=== PATIENT | female | born 1955 | race Caucasian/White ===

== ENCOUNTER → 2021-09-27 10:40 | Outpatient (BNVA) | payer MEDICARE, SELFPAY | PROVIDERS: Family Provider Family Medicine; PCP Family Medicine; Visit Provider Registered Nurse Neonatal Intensive Care | DX: M19.012 Primary osteoarthritis, left shoulder (principal); S49.92XA Unspecified injury of left shoulder and upper arm, initial encounter; W19.XXXA Unspecified fall, initial encounter | CPT/HCPCS: 73030 ==

== ENCOUNTER 2023-05-22 12:25 | Day surgery (SDC) | payer MEDICARE, SELFPAY ==
[2023-05-22] VITALS (9 sets, daily range): BP systolic 95–140; BP diastolic 64–81; PULSE 51–75; RESP 12–16; TEMP 36.1–36.4; O2SAT 96–99
[2023-05-22 13:04] LABS: Basophils # 0.1 10^3/uL (0.0-0.1); Basophils % 0.8 %; Eosinophils # 0.2 10^3/uL (0.0-0.8); Eosinophils % 2.3 %; Hematocrit 43.6 % (37.0-47.0); Hemoglobin 14.4 g/dL (11.5-15.3); Lymphocytes # 1.7 10^3/uL (0.8-4.8); Lymphocytes % 26.4 %; Mean Corpuscular Hemoglobin 29.6 pg (28.0-34.0); Mean Corpuscular Volume 89.7 fl (81-99); Monocytes # 0.5 10^3/uL (0.2-0.9); Neutrophils # 4.06 10^3/uL (1.8-7.7); Neutrophils % 62.3 %; Nucleated Red Blood Cells % 0 %; Platelet Count 247 10^3/cmm (130-400); Red Blood Count 4.86 10^6/uL (4.1-5.3); Red Cell Distribution Width 12.4 % (12.1-15.1); White Blood Count 6.5 10^3/uL (4.0-10.0)
--- NOTE | 2023-05-22 13:36 | ANES.PREANE2 ---
Pre-Anesthetic Assessment Height/Weight: Height 1.55 m Weight 76.204 kg Preop Diagnosis: cervical/vaginal mass Operation Date: 05/22/23 13:50 Proposed Procedures p Pelvic Exam [id number], N89.8, N88.8(Not Applicable) - Anne Kwon MD s bx vagina & cervix [id number](Not Applicable) - Anne Kwon MD Familial anesthetic complications: none Was Beta Tucker taken within 24 hours: N/A Was Clonidine taken within 24 hours: N/A Last intake: Intake Last Liquid Date 05/22/23 Last Solid Date 05/21/23 Last Solid Time 20:30 Social No alcohol and No tobacco Exam alert, oriented x 3, clear to auscultation bilaterally and regular rate & rhythm Airway Mallampati: Class I Dentition: full Anesthetic Plan ASA status: 1 Anesthesia: General Risk of > 500 ml blood loss (7ml/kg in children): No Medications/Allergies Home Medications Medication Instructions Recorded Confirmed Last Taken Type blue-green algae (bulk) (Spirulina ea miscellaneous 05/21/23 05/21/23 History powder) Allergies Allergy/AdvReac Type Severity Reaction Status Date / Time No Known Allergies Allergy Verified 05/22/23 12:48 [facility] Anesthesia Family History (Updated 05/21/23 @ 12:58 by Karissa Calderon LPN) Grandmother Heart disease maternal Mother Hypertension Stroke Diabetes Denies family history of Colon cancer Ovarian cancer Hypercholesteremia Breast cancer Uterine cancer Thyroid disease Data Anesthesia 05/22/23 12:55 05/22/23 12:55 Short CBC 05/22/23 Range/Units 12:55 WBC 6.5 (4.0-10.0) 10^3/uL Hgb 14.4 (11.5-15.3) g/dL Hct 43.6 (37.0-47.0) % MCV 89.7 (81-99) fl Plt Count 247 (130-400) 10^3/cmm Neut % (Auto) 62.3 % Neut # (Auto) 4.06 (1.8-7.7) 10^3/uL BMP 05/22/23 12:55 Sodium Cancelled Potassium Cancelled Chloride Cancelled Carbon Dioxide Cancelled BUN Cancelled Creatinine Cancelled Glucose Cancelled Calcium Cancelled Cardiac Studies: No Data to Display
[2023-05-22] MEDS: sodium chloride 0.9% 1,000 ML 30 ML IV (13:45)
[2023-05-22 14:03] LABS: Anion Gap 14.9 (5-19); Blood Urea Nitrogen 6 mg/dL (8-23); Calcium 9.2 mg/dL (8.5-10.5); Carbon Dioxide 25 mmol/L (22-29); Chloride 107 mmol/L (98-107); Glomerular Filtration Rate 99.1 mL/min (90-130); Glucose 102 mg/dL (65-115); Osmolality Calculated 294 mOsm/kg (285-295); Potassium 3.9 mmol/L (3.5-5.1); Sodium 143 mmol/L (136-145)
--- NOTE | 2023-05-22 14:04 | W.PM.OPSUD ---
Surgery/Procedure H&P Update DATE OF PROCEDURE: May 22, 2023 DATE H&P PERFORMED: 05/21/23 H&P UPDATE INFORMATION: I have reviewed H&P completed within last 30 days, I have examined patient prior to procedure and No changes to prior documentation PREOP DIAGNOSIS: cervical/vaginal mass PLANNED PROCEDURE: Operation Date: 05/22/23 13:50 Proposed Procedures p Pelvic Exam 90898, N89.8, N88.8(Not Applicable) - Anne Kwon MD s bx vagina & cervix [id number](Not Applicable) - Anne Kwon MD Related Problem List Diagnoses (1) Cervical mass: (2) Vaginal mass:
[2023-05-22] MEDS: ceFAZolin 2,000 MG in sodium chloride 0.9% (plus) 50 ML 100 MG IV (15:08)
--- NOTE | 2023-05-22 16:28 | ANE.PACU2 ---
Inpatient post-anesthesia follow up: Airway intact: Yes Vital signs: Temperature 97.4 F Pulse Rate 53 Respiratory Rate 16 Blood Pressure 139/70 Pulse Oximetry 98 Oxygen Delivery Me thod Room Air Oxygen Flow Rate 8 Fraction of Inspir ed Oxygen Hydration adequate: Yes Nausea and vomiting: No Pain level: 1 Mental status: Baseline
--- NOTE | 2023-05-22 16:52 | P.OP_ITS ---
Operative Report Date of procedure: May 22, 2023 Pre-op diagnosis: Preop Diagnosis cervical/vaginal mass Post-op diagnosis: same Post-op findings: Large irregular cervical mass. Large endocervical polyp present as well. Procedure done: biopsy of cervical mass Specimens removed/disposition: portion of cervical mass to pathology Surgeon: Anne Kwon Anesthesia: MAC Estimated blood loss (mL): 25 IV fluids (mL): 200 Complications: none Findings: large, irregular cervical mass and additional endocervical polyp Condition: stable Disposition: PACU Procedure: The patient was taken to the operating room where monitored anesthesia was administered and found to be adequate. She was prepped and draped in the normal sterile fashion in the dorsal lithotomy position in [facility]. A Devyn- coated bivalve speculum was placed into the vagina and the large mass visualized. There was also a endocervical polyp present on the right side. The mass was grasped with a [place] forcep and using a loop cautery, a portion of the mass was removed. The mass was extremely friable and several pieces came out at this time. The bleeding was controlled using ball cautery. The speculum was removed and attention was turned to the cystoscopy. The cystoscope was advanced into the urinary bladder it appeared grossly normal there were no masses and no invasion by the cancer. A picture was taken to show the patient that her bladder appeared grossly normal. All instruments were removed. The patient tolerated the procedure well. There was good hemostasis of the cervical mass at the end of the procedure. Sponge lap and needle counts were correct x3. She was taken to the recovery room in stable condition.
--- NOTE | 2023-05-22 16:52 | P.DS_ITS ---
Discharge Providers Date of Admission: 05/22/23 Date of Discharge: May 22, 2023 Attending Provider at Discharge: Anne Kwon MD Primary Care Provider: Saundra Lazo MD Diagnoses at Discharge Discharge Diagnosis (1) Cervical mass: Status: Acute (2) Vaginal mass: Status: Acute Reason for Visit Reason for Visit: N98.8, N88.8 Hospital Course Hospital Course The patient was admitted for exam under anesthesia and biopsy of a cervical/vaginal mass. She did well post-procedure and was ready for discharge. Discharge Data Studies Completed and Pending Pending at discharge Category Date Time Status Pathology: Surgical [PTH] Routine Pth 05/22/23 15:45 Received Laboratory Results WBC 6.5 10^3/uL (4.0-10.0) 05/22/23 12:55 RBC 4.86 10^6/uL (4.1-5.3) 05/22/23 12:55 Hgb 14.4 g/dL (11.5-15.3) 05/22/23 12:55 Hct 43.6 % (37.0-47.0) 05/22/23 12:55 MCV 89.7 fl (81-99) 05/22/23 12:55 MCH 29.6 pg (28.0-34.0) 05/22/23 12:55 MCHC 33.0 g/dL (30.0-36.0) 05/22/23 12:55 RDW 12.4 % (12.1-15.1) 05/22/23 12:55 Plt Count 247 10^3/cmm (130-400) 05/22/23 12:55 MPV 11.0 fL (7.4-10.4) H 05/22/23 12:55 Neut % (Auto) 62.3 % 05/22/23 12:55 Lymph % (Auto) 26.4 % 05/22/23 12:55 Alcorn % (Auto) 8.0 % 05/22/23 12:55 Eos % (Auto) 2.3 % 05/22/23 12:55 Baso % (Auto) 0.8 % 05/22/23 12:55 Neut # (Auto) 4.06 10^3/uL (1.8-7.7) 05/22/23 12:55 Lymph # (Auto) 1.7 10^3/uL (0.8-4.8) 05/22/23 12:55 Alcorn # (Auto) 0.5 10^3/uL (0.2-0.9) 05/22/23 12:55 Eos # (Auto) 0.2 10^3/uL (0.0-0.8) 05/22/23 12:55 Baso # (Auto) 0.1 10^3/uL (0.0-0.1) 05/22/23 12:55 Nucleated RBC % (auto) 0 % 05/22/23 12:55 Nucleated RBCs # 0.0 /100WBC 05/22/23 12:55 Sodium 143 mmol/L (136-145) 05/22/23 13:15 Potassium 3.9 mmol/L (3.5-5.1) 05/22/23 13:15 Chloride 107 mmol/L (98-107) 05/22/23 13:15 Carbon Dioxide 25 mmol/L (22-29) 05/22/23 13:15 Anion Gap 14.9 (5-19) 05/22/23 13:15 BUN 6 mg/dL (8-23) L 05/22/23 13:15 Creatinine 0.6 mg/dL (0.5-0.9) 05/22/23 13:15 GFR Calculation 99.1 mL/min (90-130) 05/22/23 13:15 Glucose 102 mg/dL (65-115) 05/22/23 13:15 Calculated Osmolality 294 mOsm/kg (285-295) 05/22/23 13:15 Calcium 9.2 mg/dL (8.5-10.5) 05/22/23 13:15 Vitals Last Vital Signs Temp 97.4 F L 05/22/23 16:05 Pulse 72 05/22/23 16:44 Resp 16 05/22/23 16:44 BP 140/81 05/22/23 16:44 Pulse Ox 97 05/22/23 16:44 O2 Del Method Room Air 05/22/23 16:44 O2 Flow Rate 8 05/22/23 15:42 Discharge Plan Discharge Patient Disposition: Home Condition: Stable Prescriptions: Continued Spirulina Powder MISCELLANEOUS Discharge Orders: Discharge Order (Routine); Ordered 05/22/23 Ordered By: Anne Kwon Patient Instructions: Cystoscopy (DC), Post Anesthesia Care Discharge Attestations Time Spent in Discharge Care*: less than 30 min Quality Metrics Clinical Quality Measures [ No reported AMI, CVA or VTE this stay] Coding Level of Care Code Acute Code for Chg Fwd Diagnoses Cervical mass N88.8 Vaginal mass N89.8
== END 2023-05-22 17:20 | disposition home or self-care (01) ==
PROVIDERS: PCP Family Medicine; Visit Provider Obstetrics & Gynecology
PROC: 8E0UXY7 Examination of Female Reproductive System (ICD-10-PCS; CPT 57410; principal; 2023-05-22 13:40)
PROC: (CPT 57500; 2023-05-22 13:40)
PROC: 0TJB8ZZ Inspection of Bladder, Via Natural or Artificial Opening Endoscopic (ICD-10-PCS; CPT 52000; 2023-05-22 13:40)
DX: C53.9 Malignant neoplasm of cervix uteri, unspecified (principal); N84.1 Polyp of cervix uteri
CPT/HCPCS: 57500; 36415; 80048; 85025; 88305; 88342; J0690; J1885; J2704; J3010; J7030

== ENCOUNTER 2023-06-23 05:41 | Outpatient (CLI) | payer MEDICARE, SELFPAY ==
--- NOTE | 2023-06-23 | PETR_ITS ---
PROCEDURE INFORMATION: Exam: PET/CT Skull Base to Mid-thigh Exam date and time: 06/23/2023 11:56 AM Age: 67 years old Clinical indication: Condition or disease; Primary cancer: Cervical; Initial oncological staging assessment; Additional info: Cervical cancer LABS AND CLINICAL REPORTS: Glucose: 97 mg/dl Treatment strategy for malignancy (PET staging): Initial Staging (PI) TECHNIQUE: Imaging protocol: Following at least four-hour fasting and following the injection of radiopharmaceutical, low dose CT images were obtained. Then, PET images were obtained. Attenuation corrected images were constructed using the CT scan. Fused images of PET and CT were reviewed. The standardized uptake values (SUV) reported below are maximum values within a region of interest, expressed in gm/ml. Exam includes orbital meatal line to mid-thigh. Radiopharmaceutical: 13.04 mCi F-18 FDG (Fluorodeoxyglucose), IV. Time of imaging post radiopharmaceutical administration: 1 hour Injection site: Right antecubital COMPARISON: No relevant prior studies available. FINDINGS: Brain: Visualized brain has normal physiologic uptake. Pharynx: No abnormal uptake. Larynx: No abnormal uptake. Thyroid: Diffusely elevated uptake in the thyroid gland is noted, SUV max 4.7 with possible low-density nodularity particularly in the right inferior thyroid lobe. Lungs, pleura and trachea: No abnormal uptake. A calcified appearing right upper lobe nodule is not radiotracer avid on series 3, image 54 measuring approximately 0.5 x 0.3 cm. Heart: Normal physiologic uptake. Mediastinal space: No abnormal uptake. Diaphragm: Moderate to large hiatal hernia. Liver: No abnormal uptake. Gallbladder and bile ducts: No abnormal uptake. Pancreas: No abnormal uptake. Spleen: No abnormal uptake. Adrenal glands: No abnormal uptake. Kidneys and ureters: Normal physiologic uptake. Stomach and bowel: Mildly elevated uptake in the sigmoid colon is noted on series 4, image 124, SUV max 3.8, with possible mild associated wall thickening on CT series 3, images 123-125. Reproductive: Abnormal uptake is within a region of masslike soft tissue density centered in the region of the cervix is noted measuring 6.7 x 4.3 cm in the axial plane on series 3, image 133, SUV max 57.6. Vasculature: No abnormal uptake. There are diffuse atherosclerotic changes. Lymph nodes: No abnormal uptake. No lymphadenopathy in the head, neck, chest, abdomen, pelvis, and extremities. Bones/joints: No abnormal uptake in the visualized axial and appendicular skeleton. There is mild diffuse vertebral body spondylosis. Mild thoracic spine kyphosis. Soft tissues: Benign-appearing uptake is noted in the region of the distal right gluteus medius tendon, likely inflammatory. METRICS: Mediastinal blood pool: SUV max 2.5 PET/PET skulltothigh INITIAL [id number] IMPRESSION: 1. Elevated uptake is identified in the region of a cervical mass compatible with the history of cervical cancer. 2. Mildly elevated uptake is noted in a segment of sigmoid colon where there is possible wall thickening. This uptake may be physiologic however inflammatory, infectious or neoplastic etiologies cannot be excluded from this exam. 3. Elevated uptake in a nodular appearing thyroid gland is diffuse favoring a benign etiology. Thyroid ultrasound may be useful for further characterization. 4. Moderate to large hiatal hernia. 5. Additional nonurgent findings as detailed above.
== END 2023-06-23 05:42 | disposition home or self-care (01) ==
PROVIDERS: PCP Family Medicine; Visit Provider Obstetrics & Gynecology Gynecologic Oncology
DX: C53.9 Malignant neoplasm of cervix uteri, unspecified (principal); K44.9 Diaphragmatic hernia without obstruction or gangrene
CPT/HCPCS: 78815; A9552

== ENCOUNTER → 2023-08-01 09:13 | Day surgery (SDC) | payer MEDICARE, SELFPAY ==
--- NOTE | 2023-08-01 09:16 | XR_ITS ---
WS: [id number] XR chest 1V portable [id number] REASON FOR EXAM: Post PICC insertion FINDINGS: Initial image demonstrated the left arm PICC line just within the superior vena cava at the junction of the innominate vein. It was suggested to advance the catheter 2 to 3 cm. A follow-up examination d emonstrated the tip of the catheter in the superior vena cava just above the right atrium in proper p osition for use. IMPRESSION: PICC line placement appropriate and ready for use. Instructions and confirmations were made over the phone to the electronic technologist on site.
--- NOTE | 2023-08-01 10:00 | PC.NURSE ---
Double lumen PICC placed. [facility] for [facility]. Pt requesting PICC to be placed in left arm due to some residual pain in right arm. Risks and benefits discussed with patient and informed consent obtained. Left arm assessed with left basilic vein measuring 4.5 mm, straight, and apparent best choice for placement. Using sterile technique and MST, basilic vein accessed x 1 stick. Mid-arm circumference measured 10 cm from left AC 30 cm. Trimmed cath length 42 cm with 0 cm external length noted. CXR shows cath tip in distal SVC, good to use per radiologist. Line secured with stat-lock. Insertion site covered with Biopatch and TSM. Report called to Ashlee JAQUEZ. Pt scheduled at [facility] tomorrow at 1:45 pm for PICC dressing change.
[2023-08-01 10:41] VITALS: BP 149/86; PULSE 66; RESP 18; TEMP 36.2; O2SAT 97
== END ==
PROVIDERS: PCP Family Medicine; Visit Provider Internal Medicine Medical Oncology
DX: Z45.2 Encounter for adjustment and management of vascular access device (principal)
CPT/HCPCS: 36573; 71045

== ENCOUNTER 2023-08-10 10:02 | Oncology outpatient (recurring) (ONCR) | payer MEDICARE, SELFPAY ==
--- NOTE | 2023-07-19 13:12 | N.ONRAD NP_ITS ---
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 Chief Complaint / History of Present Illness: Mrs. Wiggins is a 67-year-old lady who developed vaginal spotting and noticed a mass in the distal vagina. She was seen by Dr. Kwon and found to have a large irregular cervical mass associated with an endocervical polyp. The patient was taken to the operating room 05/22/2023 and biopsies were performed. The polyp had mild atypia. The cervix pathology showed adenocarcinoma. She was referred to Dr. Hendrix. Her exam revealed a large necrotic mass involving the cervix, approximately 6 cm in size, though the patient was very uncomfortable and a precise measurement was difficult to obtain. She did detect early parametrial invasion at least. A PET scan was performed. Abnormal uptake was present in the cervix and the mass was measured at approximately 6.7 x 4.3 cm. No lymphadenopathy or metastatic disease seen. There was increased uptake in a segment of the sigmoid colon, inconclusive in nature. Also some uptake was noted in the thyroid gland, benign etiology favored, though thyroid ultrasound ???may be useful . Mrs. Wiggins is a candidate for concomitant chemotherapy and radiation to the pelvis followed by brachytherapy. She is referred for the external beam portion of her treatment. She has an appointment on Sunday of next week to discuss chemotherapy. Current Medications: None listed. Allergies: No known medication allergies. Medical History: No history of collagen vascular disease. No previous radiation therapy. No major illnesses. Surgical History: Cervical biopsy 05/22/2023. D&C 1972. Family History: Brain tumor in her sister. Cancer of some type in her mother. Social History: . Current Complaints / Review of Systems: . Vaginal bleeding has largely stopped. Slight spotting. She has no troublesome urinary tract symptoms, but she states her urinary stream is deviated to 1 side because of the tumor. No bowel complaints. No pulmonary complaints. No cardiac complaints. No unusual pain. Vital Signs: Performed on 07/19/2023 10:43 AM BMI - 31.668 kg/m2 (high), Height - 61 in, Weight - 167.6 lbs, Temperature - 97.9 f, Pulse - 65 /min, Respiration - 18 /min, O2 Sat - 99 %, Pain - 0, Fatigue - 0 and BP - 143/ 87 mm(hg)(high/). Physical Exam: Alert, oriented, no acute distress. No cervical or supraclavicular lymphadenopathy. Lungs clear to percussion. On auscultation no rales, rhonchi, or wheezes. Heart rhythm regular. No murmur or gallop. Abdomen: no distention. No organomegaly or mass or tenderness. No tenderness over the bladder. Pelvic: Normal-appearing external genitalia. The patient was very reluctant to allow an exam and started pulling away before I put the speculum in the vagina. I saw almost nothing due to her lack of cooperation. However I did palpate with 1 digit. The cervix was very indurated and palpated down to about 1 cm below the inferior border of the symphysis pubis. I could not further characterize the cervical mass. No active bleeding developed. Performance Status: ECOG 0 Pathology: Adenocarcinoma Lab: Imaging: See HPI PET negative except for the primary cervical cancer. 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 Hendrix when she examined the patient. The patient did not allow me to do an adequate exam. I discussed with her that she is a candidate for external beam radiation for 5 weeks given in conjunction with weekly chemotherapy. After that she will be a candidate for brachytherapy. She told me that Dr. Romo told her that she would have two brachytherapy sessions a week for 3 weeks. I discussed the logistics of daily external beam radiation. I discussed the acute side effects including diarrhea, dysuria, fatigue, and decreased appetite. She asked about blood counts (she is a [employer]) and I told her they could drop during treatment, mostly due to the chemotherapy. I discussed the rare but real risk of injury to bowel or bladder that could require surgery and even a permanent ostomy. She wishes to proceed with treatment as recommended. Plan: Simulation performed. She will be counseled on chemotherapy next Sunday in [place]. Signed by: 07/19/2023 1:10:35 PM <<Signature on File>> Time spent with patient: CPT Code: CPT Code:
[2023-08-02 13:50] VITALS: BP 130/73; PULSE 65; RESP 16; TEMP 37.4; O2SAT 98
--- NOTE | 2023-08-02 13:53 | PC.NURSE ---
PICC Line Dressing Change PICC line dressing was changed on 08/02/23 at 1345 using sterile technique. No redness or irritation noted at the insertion site. Pt tolerated well.
[2023-08-07 08:29] VITALS: BP 119/79; PULSE 63
[2023-08-07 08:29] LABS: Basophils % 0.7 %; Eosinophils # 0.2 10^3/uL (0.0-0.8); Hematocrit 39.7 % (36-47); Lymphocytes # 1.3 10^3/uL (0.8-4.8); Lymphocytes % 24.4 %; Mean Corpuscular HGB Conc 33.5 g/dL (30-55); Mean Corpuscular Hemoglobin 30.3 pg (27-33); Mean Corpuscular Volume 90.4 fl (85-98); Mean Platelet Volume 11.1 fL (7.4-10.4); Monocytes # 0.4 10^3/uL (0.2-0.9); Monocytes % 7.5 %; Neutrophils # 3.44 10^3/uL (1.8-7.7); Neutrophils % 63.2 %; Nucleated Red Blood Cells % 0 %; Platelet Count 205 10^3/cmm (157-399); Red Blood Count 4.39 10^6/uL (3.85-5.65); Red Cell Distribution Width 12.2 % (12.1-15.1); White Blood Count 5.45 10^3/uL (3.29-11.43)
[2023-08-07 09:07] LABS: Alanine Aminotransferase 17 U/L (0-33); Albumin Level 4.1 g/dL (3.5-5.2); Alkaline Phosphatase 117 U/L (35-105); Anion Gap 14.8 (5-19); Aspartate Amino Transferase 12 U/L (0-32); Blood Urea Nitrogen 10 mg/dL (8-23); Calcium 9.1 mg/dL (8.5-10.5); Carbon Dioxide 24 mmol/L (22-29); Chloride 104 mmol/L (98-107); Free T4 Free Thyroxine 1.12 ng/dL (0.82-1.77); Globulin 2.7 g/dL (1.3-4.6); Glomerular Filtration Rate 122.3 mL/min (90-130); Glucose 95 mg/dL (65-115); Osmolality Calculated 287 mOsm/kg (285-295); Potassium 3.8 mmol/L (3.5-5.1); Sodium 139 mmol/L (136-145); Thyroid Stimulating Hormone 5.42 uIU/mL (0.27-4.20); Total Bilirubin 0.3 mg/dL (0.15-1.2); Total Protein 6.8 g/dL (6.6-8.7)
[2023-08-07] MEDS: sodium chloride 0.9% 250 ML 75 ML IV (12:17)
[2023-08-07] MEDS: palonosetron 0.25 mg/5 mL SDV IVP (12:20)
[2023-08-07] MEDS: famotidine 20 mg/2 mL INJ IVP (12:22)
[2023-08-07] MEDS: diphenhydrAMINE 50 mg/mL SDV 1mL 25 MG IVP (12:26)
[2023-08-07] MEDS: OLANZapine 5 mg TABLET PO (12:30)
[2023-08-07] MEDS: fosaprepitant 150 MG in sodium chloride 0.9% 150 ML 300 MG IV (12:30)
--- NOTE | 2023-08-07 13:26 | ONCRAD TMN_ITS ---
Radiation Oncology Weekly Treatment Management Patient: Feliciano Yeung MR#: [id number] : 1955> Attending Physician: Ferny Machuca Date of Service: 08/07/2023 Referring Physician(s) : Diagnosis: C53.9 - Malignant neoplasm of cervix uteri, unspecified, Diagnosed 05/22/2023 (Active) Radiotherapy to date: Course: Pelvis 2022, Treatment Site: Pelvis 45Gy, Ref. ID: [id number], Energy: 15X, Dose/Fx (cGy): 180, #Fx: , Dose Correction (cGy): 0, Total Dose (cGy): 180, Start Date: 08/07/2023, Elapsed Days: 0 Reason for visit: The patient is being seen today as part of their regularly scheduled weekly on treatment visits to assess for acute toxicities from radiotherapy. Review of Systems: She just began treatment. No bowel or bladder sxs. Variable vag DC. Some blood passes with more activity. Using 2 to 3 pads a day. She remains active. Vital Signs: Performed on 08/07/2023 10:43 AM BMI - 31.555 kg/m2 (high), Height - 61 in, Weight - 167 lbs, Temperature - 97.3 f, Pulse - 63 /min, Respiration - 17 /min, O2 Sat - 99 %, Pain - 0, Fatigue - 0 and BP - 119/ 79 mm(hg). Physical Exam: Imaging: Radiation therapy imaging related to accurate target localization (i.e. KV, MV and CBCT) was reviewed. Appropriate changes, if any, were made to ensure treatment accuracy. Plan: Good tolerance of treatment. Continue as planned. Signed by: Ferny Machuca 08/07/2023 1:25:48 PM
[2023-08-07] MEDS: CISPLATIN IV (13:52)
[2023-08-07] MEDS: SODIUM CHLORIDE 0.9% IV (13:52)
[2023-08-07] MEDS: FUROsemide 10 mg/mL SDV 2mL 20 MG IVP (15:04)
[2023-08-07] MEDS: potassium chloride 20 MEQ in sodium chloride 0.9% 500 ML 500 MEQ IV (15:09)
[2023-08-07 16:21] VITALS: BP 114/74; PULSE 54; RESP 17; TEMP 36.6; O2SAT 99
== END 2023-08-11 23:59 | disposition home or self-care (01) ==
PROVIDERS: PCP Family Medicine; Visit Provider Internal Medicine Medical Oncology
DX: C53.0 Malignant neoplasm of endocervix (principal)
CPT/HCPCS: 77300; 77301; 77334; 77338; 77386; 80053; 84439; 84443; 85025; 96366; 96367; 96375; 96413; 99205; 99215; J1100; J1200; J1453; J1642; J1940; J2469; J3475; J3480; J3490; J7030; J7040; J7050; J9060

== ENCOUNTER 2023-09-03 07:30 | Oncology outpatient (recurring) (ONCR) | payer MEDICARE, SELFPAY ==
[2023-08-14 09:53] LABS: Basophils % 0.6 %; Eosinophils # 0.3 10^3/uL (0.0-0.8); Eosinophils % 6.5 %; Hematocrit 38.8 % (36-47); Lymphocytes # 0.7 10^3/uL (0.8-4.8); Lymphocytes % 13.7 %; Mean Corpuscular HGB Conc 33.5 g/dL (30-55); Mean Corpuscular Hemoglobin 30.4 pg (27-33); Mean Corpuscular Volume 90.7 fl (85-98); Mean Platelet Volume 10.6 fL (7.4-10.4); Monocytes # 0.5 10^3/uL (0.2-0.9); Monocytes % 10.7 %; Neutrophils # 3.42 10^3/uL (1.8-7.7); Neutrophils % 67.7 %; Nucleated Red Blood Cells % 0 %; Platelet Count 197 10^3/cmm (157-399); Red Blood Count 4.28 10^6/uL (3.85-5.65); Red Cell Distribution Width 11.8 % (12.1-15.1); White Blood Count 5.05 10^3/uL (3.29-11.43)
[2023-08-14 10:17] LABS: Alanine Aminotransferase 16 U/L (0-33); Albumin Level 3.8 g/dL (3.5-5.2); Alkaline Phosphatase 113 U/L (35-105); Anion Gap 12.9 (5-19); Aspartate Amino Transferase 15 U/L (0-32); Blood Urea Nitrogen 10 mg/dL (8-23); Calcium 8.8 mg/dL (8.5-10.5); Carbon Dioxide 25 mmol/L (22-29); Chloride 101 mmol/L (98-107); Globulin 2.7 g/dL (1.3-4.6); Glucose 104 mg/dL (65-115); Osmolality Calculated 279 mOsm/kg (285-295); Potassium 3.9 mmol/L (3.5-5.1); Sodium 135 mmol/L (136-145); Total Bilirubin 0.3 mg/dL (0.15-1.2); Total Protein 6.5 g/dL (6.6-8.7)
--- NOTE | 2023-08-14 14:07 | ONCRAD TMN_ITS ---
Radiation Oncology Weekly Treatment Management Patient: Feliciano Powell MR#: [id number] : 1955 Attending Physician: Ferny Machuca Date of Service: 08/14/2023 Referring Physician(s) : Diagnosis: C53.9 - Malignant neoplasm of cervix uteri, unspecified, Diagnosed 05/22/2023 (Active) Radiotherapy to date: Course: Pelvis 2022, Treatment Site: Pelvis 45Gy, Ref. ID: [id number], Energy: 15X, Dose/Fx (cGy): 180, #Fx: , Dose Correction (cGy): 0, Total Dose (cGy): 1,080, Start Date: 08/07/2023, Elapsed Days: 7 Reason for visit: The patient is being seen today as part of their regularly scheduled weekly on treatment visits to assess for acute toxicities from radiotherapy. Review of Systems: Feeling better. Recovering from URI. No bowel or bladder sxs. Less vaginal discharge. Some spotting with activity. Eating ok. Vital Signs: Performed on 08/14/2023 10:45 AM BMI - 30.799 kg/m2 (high), Height - 61 in, Weight - 163 lbs, Temperature - 98.5 f, Pulse - 77 /min, Respiration - 17 /min, O2 Sat - 98 %, Pain - 0, Fatigue - 0 and BP - 126/ 85 mm(hg). Physical Exam: Imaging: Radiation therapy imaging related to accurate target localization (i.e. KV, MV and CBCT) was reviewed. Appropriate changes, if any, were made to ensure treatment accuracy. Plan: Good tolerance of treatment. Continue as planned. Signed by: Ferny Machuca 08/14/2023 2:05:22 PM
[2023-08-16] MEDS: OLANZapine 5 mg TABLET PO (12:20)
[2023-08-16] MEDS: sodium chloride 0.9% 250 ML 100 ML IV (12:23)
[2023-08-16] MEDS: diphenhydrAMINE 50 mg/mL SDV 1mL 25 MG IVP (12:25)
[2023-08-16] MEDS: palonosetron 0.25 mg/5 mL SDV IVP (12:31)
[2023-08-16] MEDS: famotidine 20 mg/2 mL INJ IVP (12:32)
[2023-08-16] MEDS: fosaprepitant 150 MG in sodium chloride 0.9% 150 ML 300 MG IV (12:33)
[2023-08-16] MEDS: CISPLATIN IV (14:09)
[2023-08-16] MEDS: SODIUM CHLORIDE 0.9% IV (14:09)
[2023-08-16] MEDS: FUROsemide 10 mg/mL SDV 2mL 20 MG IVP (15:28)
[2023-08-16] MEDS: potassium chloride 20 MEQ in sodium chloride 0.9% 500 ML 500 MEQ IV (15:32)
[2023-08-16 17:08] VITALS: BP 138/74; PULSE 78; TEMP 36.8; O2SAT 99
[2023-08-21 09:14] LABS: Basophils % 0.4 %; Eosinophils # 0.5 10^3/uL (0.0-0.8); Eosinophils % 11.7 %; Hematocrit 37.7 % (36-47); Lymphocytes # 0.7 10^3/uL (0.8-4.8); Lymphocytes % 16.1 %; Mean Corpuscular HGB Conc 33.4 g/dL (30-55); Mean Corpuscular Hemoglobin 30.5 pg (27-33); Mean Corpuscular Volume 91.3 fl (85-98); Mean Platelet Volume 10.2 fL (7.4-10.4); Monocytes # 0.4 10^3/uL (0.2-0.9); Monocytes % 8.9 %; Neutrophils # 2.88 10^3/uL (1.8-7.7); Neutrophils % 62.5 %; Nucleated Red Blood Cells % 0 %; Platelet Count 156 10^3/cmm (157-399); Red Blood Count 4.13 10^6/uL (3.85-5.65); Red Cell Distribution Width 12.1 % (12.1-15.1); White Blood Count 4.61 10^3/uL (3.29-11.43)
[2023-08-21 09:43] LABS: Alanine Aminotransferase 19 U/L (0-33); Albumin Level 3.7 g/dL (3.5-5.2); Alkaline Phosphatase 105 U/L (35-105); Anion Gap 13.1 (5-19); Aspartate Amino Transferase 17 U/L (0-32); Blood Urea Nitrogen 7 mg/dL (8-23); Calcium 8.6 mg/dL (8.5-10.5); Carbon Dioxide 25 mmol/L (22-29); Chloride 106 mmol/L (98-107); Globulin 2.6 g/dL (1.3-4.6); Glomerular Filtration Rate 98.8 mL/min (90-130); Glucose 103 mg/dL (65-115); Osmolality Calculated 288 mOsm/kg (285-295); Potassium 4.1 mmol/L (3.5-5.1); Sodium 140 mmol/L (136-145); Total Bilirubin 0.3 mg/dL (0.15-1.2); Total Protein 6.3 g/dL (6.6-8.7)
--- NOTE | 2023-08-21 12:01 | ONCRAD TMN_ITS ---
Radiation Oncology Weekly Treatment Management Patient: Sherry Wiggins MR#: [id number] : 1955 Attending Physician: Ferny Machuca Date of Service: 08/21/2023 Referring Physician(s) : Diagnosis: C53.9 - Malignant neoplasm of cervix uteri, unspecified, Diagnosed 05/22/2023 (Active) Radiotherapy to date: Course: Pelvis 2022, Treatment Site: Pelvis 45Gy, Ref. ID: [id number], Energy: 15X, Dose/Fx (cGy): 180, #Fx: , Dose Correction (cGy): 0, Total Dose (cGy): 1,620, Start Date: 08/07/2023, Elapsed Days: 14 Reason for visit: The patient is being seen today as part of their regularly scheduled weekly on treatment visits to assess for acute toxicities from radiotherapy. Review of Systems: Some diarrhea controlled with Imodium 2 q PM. Not eating but trying to maintain her hydration. Recent URI with cough and cold sxs with transient fever now resolved. On cough suppressant. Vital Signs: Performed on 08/21/2023 9:30 AM BMI - 31.026 kg/m2 (high), Height - 61 in, Weight - 164.2 lbs, Temperature - 97.5 f, Pulse - 77 /min, Respiration - 16 /min, O2 Sat - 97 %, Pain - 0, Fatigue - 4 and BP - 119/ 78 mm(hg). Physical Exam: Imaging: Radiation therapy imaging related to accurate target localization (i.e. KV, MV and CBCT) was reviewed. Appropriate changes, if any, were made to ensure treatment accuracy. Plan: Fair to good tolerance of treatment. Continue as planned. Signed by: Ferny Machuca 08/21/2023 12:00:34 PM Telemedicine Consent Patient seen today via Telemedicine by agreement and consent of patient. Telemedicine technology used during the visit include audio and, as available, review of images. This patient encounter is appropriate and reasonable under the circumstances given the patient???s particular presentation at this time. The patient has been advised of the potential risks and limitations of this mode of treatment (including but not limited to the absence of in-person examination) and has agreed to be treated in a remote fashion in spite of them. Any and all of the patient???s/patient???s family???s questions on this issue have been answered and I have made no promises or guarantees to the patient. The patient has also been advised to contact this office for worsening conditions or problems, and seek emergency medical treatment and/or call 911 if the patient deems either necessary.
[2023-08-23] MEDS: sodium chloride 0.9% 250 ML 75 ML IV (13:32)
[2023-08-23] MEDS: OLANZapine 5 mg TABLET PO (13:33)
[2023-08-23] MEDS: diphenhydrAMINE 50 mg/mL SDV 1mL 25 MG IVP (13:34)
[2023-08-23] MEDS: palonosetron 0.25 mg/5 mL SDV IVP (13:38)
[2023-08-23] MEDS: famotidine 20 mg/2 mL INJ IVP (13:41)
[2023-08-23] MEDS: fosaprepitant 150 MG in sodium chloride 0.9% 150 ML 300 MG IV (13:45)
[2023-08-23] MEDS: CISPLATIN IV (14:44)
[2023-08-23] MEDS: SODIUM CHLORIDE 0.9% IV (14:44)
[2023-08-23] MEDS: FUROsemide 10 mg/mL SDV 2mL 20 MG IVP (15:48)
[2023-08-23] MEDS: potassium chloride 20 MEQ in sodium chloride 0.9% 500 ML 500 MEQ IV (15:50)
[2023-08-23 17:06] VITALS: BP 113/69; PULSE 72; TEMP 36.4; O2SAT 99
--- NOTE | 2023-08-29 08:30 | ONCRAD TMN_ITS ---
Radiation Oncology Weekly Treatment Management Patient: Feliciano Powell MR#: [id number] : 1955 Attending Physician: Ferny Machuca Date of Service: 08/28/2023 Referring Physician(s) : Diagnosis: C53.9 - Malignant neoplasm of cervix uteri, unspecified, Diagnosed 05/22/2023 (Active) Radiotherapy to date: Course: Pelvis 2022, Treatment Site: Pelvis 45Gy, Ref. ID: [id number], Energy: 15X, Dose/Fx (cGy): 180, #Fx: , Dose Correction (cGy): 0, Total Dose (cGy): 2,160, Start Date: 08/07/2023, Elapsed Days: 21 Reason for visit: The patient is being seen today as part of their regularly scheduled weekly on treatment visits to assess for acute toxicities from radiotherapy. Review of Systems: She had a fever over the weekend. Now resolved. No evaluation done. Able to eat and drink ok. Back to baseline. Some diarrhea controlled with Imodium. Vital Signs: Performed on 08/28/2023 10:28 AM BMI - 30.761 kg/m2 (high), Height - 61 in, Weight - 162.8 lbs, Temperature - 96.7 f, Pulse - 82 /min, Respiration - 16 /min, O2 Sat - 99 %, Pain - 0, Fatigue - 0 and BP - 135/ 84 mm(hg). Physical Exam: Imaging: Radiation therapy imaging related to accurate target localization (i.e. KV, MV and CBCT) was reviewed. Appropriate changes, if any, were made to ensure treatment accuracy. Plan: Good tolerance of treatment. Fever of unknown significance resolved. Monitory VS here and at home. Continue treatment as planned. Signed by: Ferny Machuca 08/29/2023 8:29:25 AM Telemedicine Consent Patient seen today via Telemedicine by agreement and consent of patient. Telemedicine technology used during the visit include audio and, as available, review of images. This patient encounter is appropriate and reasonable under the circumstances given the patient???s particular presentation at this time. The patient has been advised of the potential risks and limitations of this mode of treatment (including but not limited to the absence of in-person examination) and has agreed to be treated in a remote fashion in spite of them. Any and all of the patient???s/patient???s family???s questions on this issue have been answered and I have made no promises or guarantees to the patient. The patient has also been advised to contact this office for worsening conditions or problems, and seek emergency medical treatment and/or call 911 if the patient deems either necessary.
[2023-08-30 09:19] VITALS: BP 132/78; PULSE 75; RESP 16; TEMP 36.5; O2SAT 97
[2023-08-30 09:29] LABS: Basophils % 1.1 %; Eosinophils # 0.3 10^3/uL (0.0-0.8); Eosinophils % 8.2 %; Lymphocytes # 0.6 10^3/uL (0.8-4.8); Lymphocytes % 15.4 %; Mean Corpuscular HGB Conc 32.9 g/dL (30-55); Mean Corpuscular Hemoglobin 29.7 pg (27-33); Mean Corpuscular Volume 90.2 fl (85-98); Monocytes # 0.4 10^3/uL (0.2-0.9); Neutrophils # 2.31 10^3/uL (1.8-7.7); Neutrophils % 63.5 %; Nucleated Red Blood Cells % 0 %; Platelet Count 160 10^3/cmm (157-399); Red Blood Count 3.77 10^6/uL (3.85-5.65); Red Cell Distribution Width 12.3 % (12.1-15.1); White Blood Count 3.64 10^3/uL (3.29-11.43)
[2023-08-30 09:53] LABS: Alanine Aminotransferase 19 U/L (0-33); Albumin Level 3.9 g/dL (3.5-5.2); Alkaline Phosphatase 94 U/L (35-105); Aspartate Amino Transferase 17 U/L (0-32); Blood Urea Nitrogen 6 mg/dL (8-23); Calcium 8.9 mg/dL (8.5-10.5); Carbon Dioxide 23 mmol/L (22-29); Chloride 106 mmol/L (98-107); Globulin 2.3 g/dL (1.3-4.6); Glomerular Filtration Rate 157.8 mL/min (90-130); Glucose 101 mg/dL (65-115); Osmolality Calculated 288 mOsm/kg (285-295); Sodium 140 mmol/L (136-145); Total Bilirubin 0.2 mg/dL (0.15-1.2); Total Protein 6.2 g/dL (6.6-8.7)
[2023-08-30 09:55] LABS: Anion Gap 14.7 (5-19); Potassium 3.7 mmol/L (3.5-5.1)
--- NOTE | 2023-08-30 11:34 | XR_ITS ---
WS: [id number] Chest 2 views, 08/30/2023 Clinical Data: cough Comparison: Portable chest, 08/01/2023 Findings: No nodules, masses or effusions are seen. The heart is normal. The pulmonary vascularity is not increased. No pneumonia or pneumothorax is seen. The diaphragms are flattened. The aortic arch a nd descending thoracic aorta show mild tortuosity and calcification. The left PICC line remains in go od position. Impression: Atherosclerosis and hyperinflation.
[2023-09-03 08:40] VITALS: BP 148/75; PULSE 78; RESP 18; TEMP 36.5; O2SAT 99
[2023-09-03 08:59] LABS: Basophils % 1.3 %; Eosinophils # 0.3 10^3/uL (0.0-0.8); Eosinophils % 10.8 %; Hematocrit 34.8 % (36-47); Lymphocytes # 0.6 10^3/uL (0.8-4.8); Lymphocytes % 18.5 %; Mean Corpuscular Hemoglobin 30.1 pg (27-33); Mean Corpuscular Volume 91.1 fl (85-98); Mean Platelet Volume 9.3 fL (7.4-10.4); Monocytes # 0.4 10^3/uL (0.2-0.9); Monocytes % 12.4 %; Neutrophils # 1.78 10^3/uL (1.8-7.7); Neutrophils % 56.7 %; Nucleated Red Blood Cells % 0 %; Platelet Count 158 10^3/cmm (157-399); Red Blood Count 3.82 10^6/uL (3.85-5.65); Red Cell Distribution Width 13.1 % (12.1-15.1); White Blood Count 3.14 10^3/uL (3.29-11.43)
[2023-09-03 09:15] LABS: Alanine Aminotransferase 14 U/L (0-33); Albumin Level 3.9 g/dL (3.5-5.2); Alkaline Phosphatase 94 U/L (35-105); Anion Gap 13.5 (5-19); Aspartate Amino Transferase 14 U/L (0-32); Blood Urea Nitrogen 7 mg/dL (8-23); Calcium 9.2 mg/dL (8.5-10.5); Carbon Dioxide 23 mmol/L (22-29); Chloride 107 mmol/L (98-107); Globulin 2.3 g/dL (1.3-4.6); Glucose 90 mg/dL (65-115); Osmolality Calculated 286 mOsm/kg (285-295); Potassium 4.5 mmol/L (3.5-5.1); Sodium 139 mmol/L (136-145); Total Bilirubin 0.2 mg/dL (0.15-1.2); Total Protein 6.2 g/dL (6.6-8.7)
[2023-09-03] MEDS: sodium chloride 0.9% 250 ML 75 ML IV (12:50)
[2023-09-03] MEDS: OLANZapine 5 mg TABLET PO (12:52)
[2023-09-03] MEDS: palonosetron 0.25 mg/5 mL SDV IVP (12:53)
[2023-09-03] MEDS: diphenhydrAMINE 50 mg/mL SDV 1mL 25 MG IVP (12:55)
[2023-09-03] MEDS: famotidine 20 mg/2 mL INJ IVP (12:58)
[2023-09-03] MEDS: fosaprepitant 150 MG in sodium chloride 0.9% 150 ML 300 MG IV (13:04)
[2023-09-03] MEDS: SODIUM CHLORIDE 0.9% IV (14:12)
[2023-09-03] MEDS: CISPLATIN IV (14:12)
[2023-09-03] MEDS: FUROsemide 10 mg/mL SDV 2mL 20 MG IVP (15:35)
[2023-09-03] MEDS: potassium chloride 20 MEQ in sodium chloride 0.9% 500 ML 500 MEQ IV (15:38)
[2023-09-03 16:49] VITALS: BP 135/69; PULSE 74; RESP 16; TEMP 36.7; O2SAT 98
== END 2023-09-03 23:59 | disposition home or self-care (01) ==
PROVIDERS: Nurse Practitioner Family; PCP Family Medicine; Visit Provider Internal Medicine Medical Oncology
DX: Z51.0 Encounter for antineoplastic radiation therapy (principal); Z51.11 Encounter for antineoplastic chemotherapy; C53.0 Malignant neoplasm of endocervix; Z79.899 Other long term (current) drug therapy; Z79.52 Long term (current) use of systemic steroids; Z95.828 Presence of other vascular implants and grafts
CPT/HCPCS: 36592; 71046; 77336; 77386; 80053; 85025; 90662; 90674; 96365; 96366; 96367; 96375; 96413; 99024; 99214; J1100; J1200; J1453; J1642; J1940; J2469; J3475; J3480; J3490; J7030; J7040; J7050; J9060

== ENCOUNTER 2023-09-11 10:15 | Oncology outpatient (recurring) (ONCR) | payer MEDICARE, SELFPAY ==
--- NOTE | 2023-09-04 11:16 | ONCRAD TMN_ITS ---
Radiation Oncology Weekly Treatment Management Patient: Feliciano Powell MR#: [id number] : 1955 Attending Physician: Vini Mcmanus Date of Service: 09/04/2023 Referring Physician(s) : Diagnosis: C53.9 - Malignant neoplasm of cervix uteri, unspecified, Diagnosed 05/22/2023 (Active) Radiotherapy to date: Course: Pelvis 2022, Treatment Site: Pelvis 45Gy, Ref. ID: [id number], Energy: 15X, Dose/Fx (cGy): 180, #Fx: , Dose Correction (cGy): 0, Total Dose (cGy): 3,060, Start Date: 08/07/2023, Elapsed Days: 28 Reason for visit: The patient is being seen today as part of their regularly scheduled weekly on treatment visits to assess for acute toxicities from radiotherapy. Review of Systems: Patient denies difficulty with dysuria or diarrhea. She had chemo yesterday and complains of fatigue. Vital Signs: Performed on 09/04/2023 10:32 AM BMI - 30.799 kg/m2 (high), Height - 61 in, Weight - 163.0 lbs, Temperature - 98.3 f, Pulse - 72 /min, Respiration - 16 /min, O2 Sat - 99 %, Pain - 0, Fatigue - 9 and BP - 105/ 57 mm(hg)(/low). Physical Exam: Alert and oriented female appearing her stated age. No alopecia. Patient is wearing a mask. Skin in the treatment area is intact without erythema or desquamation. Patient ambulatory without assistance. Imaging: Radiation therapy imaging related to accurate target localization (i.e. KV, MV and CBCT) was reviewed. Appropriate changes, if any, were made to ensure treatment accuracy. Plan: Continue prescribed treatment. Signed by: Vini Mcmanus 09/04/2023 11:15:24 AM
[2023-09-10 08:33] LABS: Basophils % 1.1 %; Eosinophils # 0.3 10^3/uL (0.0-0.8); Eosinophils % 9.5 %; Hematocrit 33.4 % (36-47); Lymphocytes # 0.5 10^3/uL (0.8-4.8); Mean Corpuscular HGB Conc 33.5 g/dL (30-55); Mean Corpuscular Hemoglobin 30.4 pg (27-33); Mean Corpuscular Volume 90.8 fl (85-98); Mean Platelet Volume 9.6 fL (7.4-10.4); Monocytes # 0.3 10^3/uL (0.2-0.9); Monocytes % 11.4 %; Neutrophils # 1.59 10^3/uL (1.8-7.7); Neutrophils % 60.2 %; Nucleated Red Blood Cells % 0 %; Platelet Count 140 10^3/cmm (157-399); Red Blood Count 3.68 10^6/uL (3.85-5.65); Red Cell Distribution Width 13.1 % (12.1-15.1); White Blood Count 2.64 10^3/uL (3.29-11.43)
[2023-09-10 08:49] LABS: Alanine Aminotransferase 14 U/L (0-33); Alkaline Phosphatase 81 U/L (35-105); Anion Gap 12.2 (5-19); Aspartate Amino Transferase 16 U/L (0-32); Blood Urea Nitrogen 10 mg/dL (8-23); Calcium 9.2 mg/dL (8.5-10.5); Carbon Dioxide 23 mmol/L (22-29); Chloride 105 mmol/L (98-107); Globulin 2.2 g/dL (1.3-4.6); Glucose 106 mg/dL (65-115); Osmolality Calculated 281 mOsm/kg (285-295); Potassium 4.2 mmol/L (3.5-5.1); Sodium 136 mmol/L (136-145); Total Bilirubin 0.2 mg/dL (0.15-1.2); Total Protein 6.2 g/dL (6.6-8.7)
[2023-09-10] MEDS: diphenhydrAMINE 50 mg/mL SDV 1mL 25 MG IVP (11:04)
[2023-09-10] MEDS: sodium chloride 0.9% 250 ML 75 ML IV (11:04)
[2023-09-10] MEDS: famotidine 20 mg/2 mL INJ IVP (11:08)
[2023-09-10] MEDS: palonosetron 0.25 mg/5 mL SDV IVP (11:11)
[2023-09-10] MEDS: fosaprepitant 150 MG in sodium chloride 0.9% 150 ML 300 MG IV (11:14)
[2023-09-10] MEDS: OLANZapine 5 mg TABLET PO (11:44)
[2023-09-10] MEDS: CISPLATIN IV (12:02)
[2023-09-10] MEDS: SODIUM CHLORIDE 0.9% IV (12:02)
[2023-09-10] MEDS: FUROsemide 10 mg/mL SDV 2mL 20 MG IVP (13:08)
[2023-09-10] MEDS: potassium chloride 20 MEQ in sodium chloride 0.9% 500 ML 500 MEQ IV (13:08)
[2023-09-10 17:08] VITALS: BP 129/77; PULSE 77; TEMP 36.6; O2SAT 98
--- NOTE | 2023-09-11 11:52 | ONCRAD TMN_ITS ---
Radiation Oncology Weekly Treatment Management Patient: Feliciano Yeung MR#: [id number] : 1955> Attending Physician: Dr. Jennie Shepherd Date of Service: 09/11/2023 Fractions: 22 out of 25 Referring Physician(s) : Diagnosis: C53.9 - Malignant neoplasm of cervix uteri, unspecified, Diagnosed 05/22/2023 (Active) Radiotherapy to date: Course: Pelvis 2022, Treatment Site: Pelvis 45Gy, Ref. ID: [id number], Energy: 15X, Dose/Fx (cGy): 180, #Fx: , Dose Correction (cGy): 0, Total Dose (cGy): 3,960, Start Date: 08/07/2023, End Date: 09/11/2023, Elapsed Days: 35 Reason for visit: The patient is being seen today as part of their regularly scheduled weekly on treatment visits to assess for acute toxicities from radiotherapy. Review of Systems: Patient is having continued issues with fatigue and weakness. She denies any nausea vomiting or diarrhea. Vital Signs: Performed on 09/11/2023 10:40 AM BMI - 30.648 kg/m2 (high), Height - 61 in, Weight - 162.2 lbs, Temperature - 97.8 f, Pulse - 74 /min, Respiration - 16 /min, O2 Sat - 99 %, Pain - 0, Fatigue - 5 and BP - 122/ 82 mm(hg). Physical Exam: She is somewhat pale. Alert and oriented x3. Gait speech within normal limits. Imaging: Radiation therapy imaging related to accurate target localization (i.e. KV, MV and CBCT) was reviewed. Appropriate changes, if any, were made to ensure treatment accuracy. Plan: We will continue with her treatments as planned. She has 3 more remaining. We had a discussion about the [id number]-fymc treatment. She had met with a physician in [place] and after talking with him and doing more research she decided that the implant was not for her. She is also discontinued her chemotherapy. We talked today about the fact that the amount of radiation she is received is only about two thirds of the dose that would typically be given. I reviewed with her that if she does not want to have the offt-ykrq-hioy implant done then we can do additional external beam but it would be probably 2 weeks worth of treatment. At this point we talked about the risks and side effects both acute and long-term and she has tentatively agreed to at least start this treatment and points out that she may not finish. We will otherwise continue with her treatments as planned. Once she has completed all of her treatments we would wait approximately [address] scan or 12 weeks for PET scan. Signed by: Dr. Jennie Shepherd 09/11/2023 11:51:27 AM
== END 2023-09-11 23:59 | disposition home or self-care (01) ==
PROVIDERS: Nurse Practitioner Family; PCP Family Medicine; Visit Provider Radiology Radiation Oncology
DX: Z51.0 Encounter for antineoplastic radiation therapy (principal); C53.0 Malignant neoplasm of endocervix
CPT/HCPCS: 77336; 77386; 80053; 85025; 96366; 96367; 96375; 96413; 99024; 99214; J1100; J1200; J1453; J1642; J1940; J2469; J3475; J3480; J3490; J7030; J7040; J7050; J9060

== ENCOUNTER 2023-10-01 10:15 | Oncology outpatient (recurring) (ONCR) | payer MEDICARE, SELFPAY ==
--- NOTE | 2023-09-18 11:09 | ONCRAD TMN_ITS ---
Radiation Oncology Weekly Treatment Management Patient: Feliciano Powell MR#: [id number] : 1955 Attending Physician: Dr. Jennie Shepherd Date of Service: 09/18/2023 Fractions: 25 of 25/ 0 of 10 boost volume Chief complaint: Patient denies any nausea or vomiting. She has noticed a throbbing pain up inside that she thinks is probably her uterus. This last for about 5 to 10 minutes. She is also had an episode of diarrhea last Sunday which caused her bottom to burn. Ever since then she has been more afraid to eat. She is actually found that the vaginal area is burning as well as her urethra. She declined for me to examine her perineum today. She has been using Vaseline on the area. Referring Physician(s) : Diagnosis: C53.9 - Malignant neoplasm of cervix uteri, unspecified, Diagnosed 05/22/2023 (Active) Radiotherapy to date: Course: Pelvis 2022, Treatment Site: Pelvis 45Gy, Ref. ID: [id number], Energy: 15X, Dose/Fx (cGy): 180, #Fx: 25 / 25, Dose Correction (cGy): 0, Total Dose (cGy): 4,500, Start Date: 08/07/2023, End Date: 09/18/2023, Elapsed Days: 42 Reason for visit: The patient is being seen today as part of their regularly scheduled weekly on treatment visits to assess for acute toxicities from radiotherapy. Review of Systems: As above Vital Signs: Performed on 09/18/2023 10:18 AM BMI - 30.232 kg/m2 (high), Height - 61 in, Weight - 160.0 lbs, Temperature - 97.7 f, Pulse - 68 /min, Respiration - 16 /min, O2 Sat - 98 %, Pain - 0, Fatigue - 0 and BP - 114/ 63 mm(hg)(/low). Physical Exam: Skin is warm and dry and patient's color is good. Respiratory rate is regular nonlabored. Abdomen is nondistended. Imaging: Radiation therapy imaging related to accurate target localization (i.e. KV, MV and CBCT) was reviewed. Appropriate changes, if any, were made to ensure treatment accuracy. Plan: At this time we will continue with her treatments as planned. She starts the boost tomorrow. I reviewed with her how the boost will be a smaller volume and many of her symptoms will begin to resolve by the weekend. I have asked her to stop using the Vaseline and switch to Desitin for the perianal area. We talked about how for the urethra there would really would not be any particular medication she could do. I did recommend that she get a sitz bath since she is unable to get into a bathtub. We also talked about some different things she can do to get more water in such as adding flavor to her water. I offered to her Lomotil today but she says she will try some Kaopectate first and let me know by whether she would like to try the Lomotil. Signed by: Dr. Jennie Shepherd 09/18/2023 11:07:52 AM
[2023-09-18 11:19] VITALS: BP 127/70; PULSE 73; RESP 16; TEMP 36.9; O2SAT 98
[2023-09-18 11:54] LABS: Eosinophils # 0.1 10^3/uL (0.0-0.8); Eosinophils % 4.3 %; Hematocrit 29.2 % (36-47); Lymphocytes # 0.3 10^3/uL (0.8-4.8); Lymphocytes % 15.3 %; Mean Corpuscular HGB Conc 33.6 g/dL (30-55); Mean Corpuscular Hemoglobin 30.6 pg (27-33); Mean Corpuscular Volume 91.3 fl (85-98); Mean Platelet Volume 9.6 fL (7.4-10.4); Monocytes # 0.3 10^3/uL (0.2-0.9); Monocytes % 14.4 %; Neutrophils # 1.35 10^3/uL (1.8-7.7); Neutrophils % 64.5 %; Nucleated Red Blood Cells % 0 %; Platelet Count 137 10^3/cmm (157-399); Red Cell Distribution Width 13.3 % (12.1-15.1); White Blood Count 2.09 10^3/uL (3.29-11.43)
[2023-09-18 12:17] LABS: Alanine Aminotransferase 11 U/L (0-33); Alkaline Phosphatase 78 U/L (35-105); Anion Gap 13.9 (5-19); Aspartate Amino Transferase 14 U/L (0-32); Blood Urea Nitrogen 7 mg/dL (8-23); Calcium 8.9 mg/dL (8.5-10.5); Carbon Dioxide 23 mmol/L (22-29); Chloride 101 mmol/L (98-107); Globulin 2.1 g/dL (1.3-4.6); Glomerular Filtration Rate 157.8 mL/min (90-130); Glucose 88 mg/dL (65-115); Osmolality Calculated 275 mOsm/kg (285-295); Potassium 3.9 mmol/L (3.5-5.1); Sodium 134 mmol/L (136-145); Total Bilirubin 0.2 mg/dL (0.15-1.2); Total Protein 6.1 g/dL (6.6-8.7)
--- NOTE | 2023-09-26 16:44 | ONCRAD TMN_ITS ---
Radiation Oncology Weekly Treatment Management Patient: Feliciano Powell MR#: [id number] : 1955 Attending Physician: Ferny Machuca Date of Service: 09/26/2023 Referring Physician(s) : Diagnosis: C53.9 - Malignant neoplasm of cervix uteri, unspecified, Diagnosed 05/22/2023 (Active) Radiotherapy to date: Course: Pelvis 2022, Treatment Site: Pelvis 45Gy, Ref. ID: [id number], Energy: 15X, Dose/Fx (cGy): 180, #Fx: 25 / 25, Dose Correction (cGy): 0, Total Dose (cGy): 4,500, Start Date: 08/07/2023, End Date: 09/18/2023, Elapsed Days: 42 Course: Pelvis 2022, Treatment Site: [id number], Ref. ID: [id number], Energy: 15X, Dose/Fx (cGy): 200, #Fx: 5 / 10, Dose Correction (cGy): 0, Total Dose (cGy): 1,000, Start Date: 09/19/2023, Elapsed Days: 7 Reason for visit: The patient is being seen today as part of their regularly scheduled weekly on treatment visits to assess for acute toxicities from radiotherapy. Review of Systems: Now receiving EBRT boost as she has declined brachytherapy. Bowels are irregular and ???weird???. She has small solid stools and mucous discharge. Uisng some Imodium as she want to avoid additional diarrhea which did occur last week. Not eating a lot. No N or V. Drinking fluids well with no urinary symptoms. Energy level is improving. Vital Signs: Performed on 09/26/2023 2:37 PM BMI - 30.043 kg/m2 (high), Height - 61 in, Weight - 159 lbs, Temperature - 97.8 f, Pulse - 69 /min, Respiration - 16 /min, O2 Sat - 99 %, Pain - 0, Fatigue - 5 and BP - 139/ 74 mm(hg). Physical Exam: Imaging: Radiation therapy imaging related to accurate target localization (i.e. KV, MV and CBCT) was reviewed. Appropriate changes, if any, were made to ensure treatment accuracy. Plan: Good tolerance of treatment. Will continue as planned. Signed by: Ferny Machuca 09/26/2023 4:43:12 PM
== END 2023-10-01 23:59 | disposition home or self-care (01) ==
PROVIDERS: Nurse Practitioner Family; PCP Family Medicine; Visit Provider Specialist
DX: Z51.0 Encounter for antineoplastic radiation therapy (principal); Z51.11 Encounter for antineoplastic chemotherapy; C53.0 Malignant neoplasm of endocervix; Z23 Encounter for immunization; Z53.9 Procedure and treatment not carried out, unspecified reason; Z79.52 Long term (current) use of systemic steroids; Z79.899 Other long term (current) drug therapy; Z95.828 Presence of other vascular implants and grafts; Z87.891 Personal history of nicotine dependence
CPT/HCPCS: 77014; 77300; 77336; 77338; 77386; 77417; 80053; 85025; 99024; J1642

== ENCOUNTER 2023-10-08 10:15 | Oncology outpatient (recurring) (ONCR) | payer MEDICARE, SELFPAY ==
[2023-10-02 10:24] VITALS: BP 130/80; PULSE 93; RESP 16; TEMP 36.5; O2SAT 98
--- NOTE | 2023-10-03 11:15 | ONCRAD TMN_ITS ---
Radiation Oncology Weekly Treatment Management/Treatment Summary Patient: Sherry Wiggins MR#: [id number] : 1955 Attending Physician: Mino Lopez Date of Service: 10/03/2023 Referring Physician(s) : Diagnosis: C53.9 - Malignant neoplasm of cervix uteri, unspecified, Diagnosed 05/22/2023 (Active) Radiotherapy to date: Course: Pelvis 2022, Treatment Site: Pelvis 45Gy, Ref. ID: [id number], Energy: 15X, Dose/Fx (cGy): 180, #Fx: 25 / 25, Dose Correction (cGy): 0, Total Dose (cGy): 4,500, Start Date: 08/07/2023, End Date: 09/18/2023, Elapsed Days: 42 Pelvis 2022, Treatment Site: [id number], Ref. ID: [id number], Energy: 15X, Dose/Fx (cGy): 200, #Fx: 10 / 10, Dose Correction (cGy): 0, Total Dose (cGy): 2,000, Start Date: 09/19/2023, End Date: 10/03/2023, Elapsed Days: 14 Reason for visit: The patient is being seen today as part of their regularly scheduled weekly on treatment visits to assess for acute toxicities from radiotherapy. Review of Systems: She completes treatment today. General condition is good. Her bowel symptoms are unchanged. She states about [facility] through the course of treatment they became quite irregular and all stools were very small and associated with mucus passage. She does not recall having a normal bowel movement recently. She has had no diarrhea. Her bladder symptoms are also stable. She has nocturia every 2 hours at night. She has no dysuria, pyuria, or hematuria. No skin complaints. Vital Signs: Performed on 10/03/2023 10:42 AM BMI - 29.854 kg/m2 (high), Height - 61 in, Weight - 158 lbs, Temperature - 97.6 f, Pulse - 58 /min (low), Respiration - 18 /min, O2 Sat - 99 %, Pain - 0, Fatigue - 6 and BP - 121/ 72 mm(hg). Physical Exam: Alert, oriented, no acute distress. Ambulatory without assistance. Imaging: Radiation therapy imaging related to accurate target localization (i.e. KV, MV and CBCT) was reviewed. Appropriate changes, if any, were made to ensure treatment accuracy. Plan: Follow-up in [address] in 2 months. Signed by: Mino Lopez 10/03/2023 11:14:30 AM
[2023-10-08 10:07] VITALS: BP 133/83; PULSE 75; RESP 16; TEMP 36.6; O2SAT 98
[2023-10-08 10:23] LABS: Basophils % 0.8 %; Eosinophils # 0.1 10^3/uL (0.0-0.8); Eosinophils % 2.4 %; Hematocrit 32.6 % (36-47); Lymphocytes # 0.4 10^3/uL (0.8-4.8); Lymphocytes % 15.4 %; Mean Corpuscular HGB Conc 33.7 g/dL (30-55); Mean Corpuscular Hemoglobin 32.4 pg (27-33); Mean Corpuscular Volume 96.2 fl (85-98); Mean Platelet Volume 9.8 fL (7.4-10.4); Monocytes # 0.4 10^3/uL (0.2-0.9); Monocytes % 14.6 %; Neutrophils # 1.69 10^3/uL (1.8-7.7); Neutrophils % 66.4 %; Nucleated Red Blood Cells % 0 %; Platelet Count 210 10^3/cmm (157-399); Red Blood Count 3.39 10^6/uL (3.85-5.65); Red Cell Distribution Width 17.6 % (12.1-15.1); White Blood Count 2.54 10^3/uL (3.29-11.43)
[2023-10-08 11:00] LABS: Alanine Aminotransferase 10 U/L (0-33); Alkaline Phosphatase 81 U/L (35-105); Anion Gap 15.1 (5-19); Aspartate Amino Transferase 14 U/L (0-32); Blood Urea Nitrogen 9 mg/dL (8-23); Calcium 9.3 mg/dL (8.5-10.5); Carbon Dioxide 23 mmol/L (22-29); Chloride 103 mmol/L (98-107); Globulin 2.5 g/dL (1.3-4.6); Glucose 91 mg/dL (65-115); Osmolality Calculated 282 mOsm/kg (285-295); Potassium 4.1 mmol/L (3.5-5.1); Sodium 137 mmol/L (136-145); Total Bilirubin 0.2 mg/dL (0.15-1.2); Total Protein 6.5 g/dL (6.6-8.7)
== END 2023-10-11 23:59 | disposition home or self-care (01) ==
PROVIDERS: Internal Medicine Medical Oncology; PCP Family Medicine; Visit Provider Radiology Radiation Oncology
DX: C53.0 Malignant neoplasm of endocervix
CPT/HCPCS: 36592; 77336; 77386; 77417; 80053; 85025; 99024; 99214; J1642

== ENCOUNTER 2023-12-18 10:09 | Outpatient (CLI) | payer MEDICARE, SELFPAY ==
--- NOTE | 2023-12-18 10:00 | CTR_ITS ---
PROCEDURE INFORMATION: Exam: CT Abdomen And Pelvis With Contrast Exam date and time: 12/18/2023 10:40 AM Age: 68 years old Clinical indication: Condition or disease; Other: Cervical cancer; Additional info: Treated cervical carcinoma, post treatment scan TECHNIQUE: Imaging protocol: Computed tomography of the abdomen and pelvis with contrast. Radiation optimization: All CT scans at this facility use at least one of these dose optimization techniques: automated exposure control; mA and/or kV adjustment per patient size (includes targeted exams where dose is matched to clinical indication); or iterative reconstruction. Contrast material: OMNI 350; Contrast volume: 95 ml; Contrast route: INTRAVENOUS (IV); COMPARISON: US pelv w/transvag [id number] 05/17/2023 2:34 PM RADIATION DOSE METRICS: Total DLP (mGy-cm): 386.75 FINDINGS: Diaphragm: Large hiatal hernia. Liver: No mass. Gallbladder and bile ducts: No calcified stones. No ductal dilation. Pancreas: No ductal dilation. Spleen: Unremarkable. Adrenal glands: Unremarkable. Kidneys and ureters: No hydronephrosis. Stomach and bowel: Colonic diverticulosis with mild wall thickening of the sigmoid colon. No pericolonic fat stranding. No obstruction. Appendix: No evidence of appendicitis. Intraperitoneal space: Unremarkable. No free air. No significant fluid collection. Vasculature: Unremarkable. No abdominal aortic aneurysm. Lymph nodes: Unremarkable. No enlarged lymph nodes. Urinary bladder: Unremarkable as visualized. Reproductive: Interval decreased size of enhancing cervical mass measuring 2.0 x 2.8 cm in axial dimension, previously 6.7 x 4.3 cm. Ovaries are unremarkable. Bones/joints: Unremarkable. No acute fracture. Soft tissues: Unremarkable. CT/CT abdomen pelvis w con* [id number] IMPRESSION: 1. Interval decreased size of cervical mass. 2. No evidence of metastatic disease.
[2023-12-18 10:37] LABS: Blood Urea Nitrogen 10 mg/dL (8-23)
[2023-12-18 10:38] LABS: Glomerular Filtration Rate 82.7 mL/min (90-130)
[2023-12-18] MEDS: iohexol 350 mg/mL 500 mL Btl (per mL) IV (10:44)
--- NOTE | 2023-12-18 11:15 | US_ITS ---
WS: [id number] THYROID ULTRASOUND HISTORY: Follow up of nodular uptake in throid seen on PET/CT 06/23/23 COMPARISON: PET/CT 06/23/2023 Right lobe: 1.8 cm x 2.0 cm x 4.2 cm (w x ap x l). Volume: 7.9 cm3. Mild diffuse heterogeneity of the thyroid. In the lower pole there is an isoechoic nodule measuring 1 .2 x 1.5 x 1.2 cm. There is a hypoechoic rim. Increased vascularity. No echogenic foci. Left lobe: 1.4 cm x 1.4 cm x 3.2 cm (w x ap x l). Volume: 3.4 cm3. Normal size and echotexture. No significant or dominant nodules are present. Isthmus: 0.2 cm. IMPRESSION: 1. TI-RADS 3; isoechoic nodule in the lower pole RIGHT thyroid. Recommend yearly ultrasound evaluatio n.
== END 2023-12-18 10:10 | disposition home or self-care (01) ==
LOC: RAD 10:09
PROVIDERS: PCP Family Medicine; Visit Provider Radiology Radiation Oncology
DX: C53.0 Malignant neoplasm of endocervix (principal); E04.1 Nontoxic single thyroid nodule
CPT/HCPCS: 74177; 76536; 82565; 84520; Q9967

== ENCOUNTER 2024-04-03 10:34 | Oncology outpatient (recurring) (ONCR) | payer MEDICARE, SELFPAY ==
--- NOTE | 2024-04-03 12:07 | ONCRAD EPV_ITS ---
Radiation Oncology Established Patient Visit Patient: Sherry Wiggins [id number] : 1955 Age: 68 Sex: Female Dictated by: Dr. Jennie Shepherd Date of Service: 04/03/2024 Referring Physician(s) : Diagnosis: C53.9 - Malignant neoplasm of cervix uteri, unspecified, Diagnosed 05/22/2023 (Active) Radiotherapy to Date: Course: Pelvis 2022, Treatment Site: [id number], Ref. ID: [id number], Energy: 15X, Dose/Fx (cGy): 200, #Fx: 10 / 10, Dose Correction (cGy): 0, Total Dose Delivered (cGy): 2,000, Start Date: 09/19/2023, End Date: 10/03/2023, Elapsed Days: 14 Course: Pelvis 2022, Treatment Site: Pelvis 45Gy, Ref. ID: [id number], Energy: 15X, Dose/Fx (cGy): 180, #Fx: 25 / 25, Dose Correction (cGy): 0, Total Dose Delivered (cGy): 4,500, Start Date: 08/07/2023, End Date: 09/18/2023, Elapsed Days: 42 Current History: Patient returns today for her 6-month follow-up. She is also scheduled to visit with gynecology in [place] next week for her pelvic exam. She had a list of questions today. She is continue to have quite a bit of gas and mucus with her stools. She is also developed an acne-like rash across her perineum. She continues to get up 2-3 times at night to pee. And she has noticed her lower extremity swelling around her ankles which she says she is asked multiple providers about and no one seems to care. Current Medications: Allergies: Current Complaints / Review of Systems: . Vital Signs: Performed on 04/03/2024 11:38 AM BMI - 29.438 kg/m2 (high), Height - 61 in, Weight - 155.8 lbs, Temperature - 97.7 f, Pulse - 64 /min, Respiration - 18 /min, O2 Sat - 99 %, Pain - 0, Fatigue - 0 and BP - 111/ 68 mm(hg). Physical Exam: General: Alert and oriented x 3. No acute distress. HEENT: Normocephalic, atraumatic. Extraocular Movements Intact: Pupils Equal, Round, Reactive to Light: Sclerae anicteric. NECK: Supple without supraclavicular or jugular lymphadenopathy. LUNGS: Respiratory rate is regular nonlabored HEART: Regular rate and rhythm,. ABDOMEN: Soft and nonprotuberant EXTREMITIES: She has just trace edema at her ankles NEUROLOGIC alert and orient x 3. Gait and speech within normal limits. Performance Status: 100 Lab: None pending. Pathology: Primary, c53.9 - malignant neoplasm of cervix uteri, unspecified, Diagnosed 05/22/2023 (active) . 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 We talked about the reason she was having more gas and mucus and now she received chemotherapy and radiation which both would have affected her microbiome. I recommended that she order picker/assembler a probiotic and start taking this. This should also help with the yeast she is dealing with in terms of the acne across her perineum. I will also call in some nystatin powder for her to use in that area as well. I did encourage her to not drink quite as much juice and try and drink more water. We reviewed how her leg swelling is most likely due to some lymphatic congestion because of the cancer in her pelvis and the treatment that she had. Recommended to her that she think about some compression socks and also making sure she elevates her feet in the evening. I encouraged her to keep active and walking and to call if any problems should arise would be happy to see her back at any time. At her request she will just continue with her follow-up in [place]. Signed by: 04/03/2024 12:05:59 PM <<Signature on File>> Time spent with patient:35 CPT Code: CPT Code:
== END 2024-04-11 23:59 | disposition home or self-care (01) ==
LOC: ONCMED 10:35
PROVIDERS: PCP Family Medicine; Visit Provider Radiology Radiation Oncology
DX: C53.0 Malignant neoplasm of endocervix (principal); Z92.3 Personal history of irradiation
CPT/HCPCS: 99214

== ENCOUNTER 2024-07-08 09:34 | Outpatient (CLI) | payer MEDICARE, SELFPAY ==
--- NOTE | 2024-07-08 09:43 | PETR_ITS ---
PROCEDURE INFORMATION: Exam: PET/CT Skull Base to Mid-thigh Exam date and time: 07/08/2024 10:25 AM Age: 68 years old Clinical indication: Cervical cancer; Follow-up oncological assessment. LABS AND CLINICAL REPORTS: Glucose: 107 mg/dl Treatment strategy for malignancy (PET staging): Restaging (PS) TECHNIQUE: Imaging protocol: Following at least four-hour fasting and following the injection of radiopharmaceutical, low dose CT images were obtained. Then, PET images were obtained. Attenuation corrected images were constructed using the CT scan. Fused images of PET and CT were reviewed. The standardized uptake values (SUV) reported below are maximum values within a region of interest, expressed in gm/ml. Exam includes orbital meatal line to mid-thigh. Radiopharmaceutical: 12 mCi F-18 FDG (Fluorodeoxyglucose), IV. Time of imaging post radiopharmaceutical administration: 1 hour Injection site: Right antecubital vein COMPARISON: PET skull to thigh INIT 06/23/2023 FINDINGS: Brain: Questionable increased uptake in the left cerebellum on axial image 6-7 of series 301. Pharynx: No abnormal uptake. Larynx: No abnormal uptake. Thyroid: Diffusely increased uptake noted on the prior exam decreased (from 4.7 SUV to 3 SUV) with no focal discrete FDG avid nodules. Stable non FDG avid 1.8 cm right thyroid nodule compatible with benign finding. Lungs, pleura and trachea: No abnormal uptake. Stable calcified granuloma in the right middle lobe. No pleural effusion. Heart: Normal physiologic uptake. There is no cardiomegaly. There is no pericardial effusion. Mediastinal space: No abnormal uptake. Stable moderate size hiatal hernia. Liver: No abnormal uptake. Gallbladder and biliary ducts: No abnormal uptake. No calcified gallstones. Pancreas: No abnormal uptake. Spleen: No abnormal uptake. No splenomegaly. Adrenal glands: No abnormal uptake. No nodules. Kidneys and ureters: Normal physiologic uptake. No hydronephrosis. Stomach and bowel: No abnormal uptake. Stable diverticulosis of the sigmoid colon Intraperitoneal and retroperitoneal spaces: No abnormal uptake. No ascites. Bladder: Normal physiologic uptake. Reproductive: No abnormal uptake. Primary tumor in the cervix decreased in size from 6 x 4.7 x 6 cm to 5.3 x 4.2 x 5.8 cm, significantly decreased in density on CT and completely resolved in previously present abnormal uptake currently measuring 1.6 SUV compatible with complete metabolic response to treatment. Vasculature: No abnormal uptake. No aortic aneurysm. Lymph nodes: Left supraclavicular nodular uptake of 6.9 SUV on axial image 235 corresponds to 1.5 x 1 cm lymph node that previously measured 0.8 x 0.4 cm. No FDG lymphadenopathy in the chest, abdomen, pelvis, and extremities. Skeleton: No abnormal uptake in the visualized axial and appendicular skeleton. Soft tissues: Linear intense uptake in the right arm extending into the right axilla and the right subclavian area represents lymphatic drainage from FDG extravasation at the injection site. PET/PET skull to thigh SUBS [id number] IMPRESSION: 1. Complete metabolic response to treatment in the primary malignant mass in the cervix. 2. New FDG avid left supraclavicular lymph node concerning for small jonathan metastasis. 3. Questionable focus of increased uptake in the left cerebellum, possibly artifact. Further evaluation with contrast enhanced MRI is recommended to exclude metastasis.
== END 2024-07-08 09:35 | disposition home or self-care (01) ==
LOC: RAD 09:34
PROVIDERS: PCP Family Medicine; Visit Provider Obstetrics & Gynecology Gynecologic Oncology
DX: C53.9 Malignant neoplasm of cervix uteri, unspecified (principal); J84.10 Pulmonary fibrosis, unspecified; R59.0 Localized enlarged lymph nodes; R90.89 Other abnormal findings on diagnostic imaging of central nervous system
CPT/HCPCS: 78815; A9552

== ENCOUNTER 2024-08-26 12:19 | Outpatient (CLI) | payer MEDICARE, SELFPAY ==
--- NOTE | 2024-08-26 12:26 | MR_ITS ---
WS: [id number] MRI HEAD WITH CONTRAST TECHNIQUE: Sagittal T1, T2 axial, T2 axial FLAIR, axial susceptibility weighted imaging, axial diffus ion weighted images, and coronal T2 images were obtained. Pre and post-T1 axial and post T1 coronal i mages. ADC and FSPGR images. CLINICAL INFORMATION: CERVICAL CANCER COMPARISON: PET/CT 07/08/2024 FINDINGS: No evidence of enhancing intracranial metastatic disease. No abnormalities in the LEFT cerebellum to correspond to the PET/CT findings which were likely due to artifact. No evidence of restricted diffusion to suggest acute ischemia. Ventricular system and basal cisterns are patent. Mild small vessel changes. Mild parenchymal volume loss. Normal posterior fossa. Normal v ascular flow voids at the skull base. No extra-axial fluid collections. No evidence of mass or mass e ffect. Incidental benign cyst or perivascular space in the RIGHT posterior frontal lobe measuring 6 m m. Paranasal sinuses and mastoid air cells are well aerated. Normal posterior nasopharynx. No hemosideri n on the susceptibly weighted images. Normal optic chiasm and pituitary infundibulum. No abnormal gadolinium enhancement. Normal dural venous sinuses. MR/MR head wo/w con [id number] IMPRESSION: 1. No evidence of enhancing intracranial metastatic disease. No abnormalities in the LEFT cerebellum.
[2024-08-26] MEDS: gadobenate dimeglumine 20 mL vial 15 ML IV (13:28)
== END 2024-08-26 12:20 | disposition home or self-care (01) ==
LOC: RAD 12:19
PROVIDERS: PCP Family Medicine; Visit Provider Obstetrics & Gynecology Gynecologic Oncology
DX: C53.9 Malignant neoplasm of cervix uteri, unspecified (principal); R59.0 Localized enlarged lymph nodes
CPT/HCPCS: 70553; A9577

== ENCOUNTER 2025-02-10 14:54 | Oncology outpatient (recurring) (ONCR) | payer MEDICARE, SELFPAY ==
--- NOTE | 2025-02-11 09:30 | ONCRAD EPV_ITS ---
Radiation Oncology Established Patient Visit Patient: Feliciano Powell [id number] : 1955> Age: 69> Sex: Female> Dictated by: Dr. Jennie Shepherd Date of Service: 02/10/2025 Referring Physician(s) : Diagnosis: C53.9 - Malignant neoplasm of cervix uteri, unspecified, Diagnosed 05/22/2023 (Active) Radiotherapy to Date: Course: Pelvis 2022, Treatment Site: Pelvis 45Gy, Ref. ID: [id number], Energy: 15X, Dose/Fx (cGy): 180, #Fx: 25 / 25, Dose Correction (cGy): 0, Total Dose Delivered (cGy): 4,500, Start Date: 08/07/2023, End Date: 09/18/2023, Elapsed Days: 42 Treatment Site: [id number], Ref. ID: [id number], Energy: 15X, Dose/Fx (cGy): 200, #Fx: 10 / 10, Dose Correction (cGy): 0, Total Dose Delivered (cGy): 2,000, Start Date: 09/19/2023, End Date: 10/03/2023, Elapsed Days: 14 Current History: Patient returns today after a PET scan which was done a year and a half after she completed treatment for her cervical cancer. Her cervical treatment was guided by what she would allow. She had external beam only. She refused to have an implant. Additional external beam was administered to a total of 65 [place]. Her most recent PET scan shows lower uterine segment/cervix area has a predominantly cystic area that has now developed a mural nodule with increased activity suspicious for recurrence. The previously noted left mediastinal lymph nodes were no longer positive. She is seen today in consultation to discuss whether additional radiation would be of benefit. She is scheduled to meet with medical oncology after our appointment today. Current Medications: Allergies: Current Complaints / Review of Systems: . Vital Signs: Performed on 02/10/2025 2:46 PM BMI - 31.895 kg/m2 (high), Height - 61 in, Weight - 168.8 lbs, Temperature - 97.8 f, Pulse - 70 /min, Respiration - 0 /min (low), O2 Sat - 97 %, Pain - 0, Fatigue - 0 and BP - 121/ 72 mm(hg). Physical Exam: General: Patient is in no apparent distress. She is alone today HEENT: Normocephalic atraumatic. Pupils equal, sclera clear, extraocular muscles intact Pulmonary: Respiratory rate is regular nonlabored Cardiovascular: Regular rate and rhythm Abdomen: Moderately protuberant and android pattern Extremities: Without edema or lymphedema Skin: Warm and dry Neurological: Alert and orient x 3. Gait and speech within normal limits Psych: Affect appropriate for current situation Performance Status: 100 Lab: None pending. Pathology: Primary, c53.9 - malignant neoplasm of cervix uteri, unspecified, Diagnosed 05/22/2023 (active) . Imaging: See HPI Impression: Recurrent cervical cancer now a year and a half out from completion of treatment Plan: I reviewed with the patient that we would be able to deliver additional radiation. However it would only be approximately half of what she had received previously. We talked about the increased risk associated with retreatment. I went over with her several times that additional radiation could result in serious harm and injury to her normal tissues. At this point she remains asymptomatic from the nodule. I have asked her to visit with medical oncology and consider that option as well. If she should elect to proceed with radiation we can proceed with planning and a short course of treatment using SBRT to try and minimize the toxicity. Otherwise we will see her back on as-needed basis. Signed by: 02/11/2025 9:29:28 AM <<Signature on File>> Time spent on patient: 45 CPT Code: * CPT Code: *
== END 2025-03-11 23:59 | disposition home or self-care (01) ==
LOC: ONCMED 14:55
PROVIDERS: PCP Family Medicine; Visit Provider Internal Medicine Medical Oncology
DX: C53.0 Malignant neoplasm of endocervix (principal); Z72.0 Tobacco use; Z92.3 Personal history of irradiation
CPT/HCPCS: 99214; 99215

== ENCOUNTER 2025-05-08 13:01 | Outpatient (CLI) | payer MEDICARE, SELFPAY ==
[2025-05-08 13:39] LABS: Basophils % 0.8 %; Eosinophils # 0.3 10^3/uL (0.0-0.8); Eosinophils % 6.5 %; Hematocrit 37.9 % (36-47); Lymphocytes # 0.9 10^3/uL (0.8-4.8); Lymphocytes % 18.1 %; Mean Corpuscular HGB Conc 33.8 g/dL (30-55); Mean Corpuscular Hemoglobin 30.3 pg (27-33); Mean Corpuscular Volume 89.8 fl (85-98); Mean Platelet Volume 10.1 fL (7.4-10.4); Monocytes # 0.4 10^3/uL (0.2-0.9); Monocytes % 8.5 %; Neutrophils # 3.27 10^3/uL (1.8-7.7); Neutrophils % 65.9 %; Nucleated Red Blood Cells % 0 %; Platelet Count 213 10^3/cmm (157-399); Red Blood Count 4.22 10^6/uL (3.85-5.65); Red Cell Distribution Width 12.6 % (12.1-15.1); White Blood Count 4.96 10^3/uL (3.29-11.43)
[2025-05-08 14:00] LABS: Alanine Aminotransferase 13 U/L (0-33); Albumin Level 4.1 g/dL (3.5-5.2); Alkaline Phosphatase 115 U/L (35-105); Aspartate Amino Transferase 15 U/L (0-32); Blood Urea Nitrogen 16 mg/dL (8-23); Calcium 9.4 mg/dL (8.5-10.5); Carbon Dioxide 23 mmol/L (22-29); Chloride 102 mmol/L (98-107); Glucose 101 mg/dL (65-115); Osmolality Calculated 289 mOsm/kg (285-295); Sodium 139 mmol/L (136-145); Total Bilirubin 0.2 mg/dL (0.15-1.2); Total Protein 7.1 g/dL (6.6-8.7)
== END 2025-05-08 13:02 | disposition home or self-care (01) ==
PROVIDERS: PCP Family Medicine
DX: C53.1 Malignant neoplasm of exocervix (principal)
CPT/HCPCS: 36415; 80053; 85025

== ENCOUNTER → 2025-06-15 14:09 | Outpatient (BNVA) | payer MEDICARE, SELFPAY | PROVIDERS: PCP Family Medicine; Visit Provider Family Medicine | DX: D50.9 Iron deficiency anemia, unspecified (principal); R53.83 Other fatigue | CPT/HCPCS: 82728; 83550; 84443; 85025 ==

== ENCOUNTER 2025-07-06 09:35 | Oncology outpatient (recurring) (ONCR) | payer MEDICARE, SELFPAY ==
[2025-07-06 10:18] LABS: Hematocrit 38.7 % (36-47); Hemoglobin 12.80 g/dL (11.27-16.99); Mean Corpuscular HGB Conc 33.1 g/dL (30-55); Mean Corpuscular Hemoglobin 30.3 pg (27-33); Mean Corpuscular Volume 91.7 fl (85-98); Nucleated Red Blood Cells % 0 %; Platelet Count 214 10^3/cmm (157-399); Red Blood Count 4.22 10^6/uL (3.85-5.65); White Blood Count 4.42 10^3/uL (3.29-11.43)
[2025-07-06 10:39] LABS: Alanine Aminotransferase 10 U/L (0-33); Albumin Level 4.2 g/dL (3.5-5.2); Alkaline Phosphatase 125 U/L (35-105); Anion Gap 15.0 (5-19); Aspartate Amino Transferase 17 U/L (0-32); Blood Urea Nitrogen 9 mg/dL (8-23); Calcium 9.4 mg/dL (8.5-10.5); Carbon Dioxide 24 mmol/L (22-29); Chloride 107 mmol/L (98-107); Creatinine Clr Calc Pharmacy 61.1634; Globulin 2.8 g/dL (1.3-4.6); Glucose 105 mg/dL (65-115); Osmolality Calculated 293 mOsm/kg (285-295); Potassium 4.0 mmol/L (3.5-5.1); Sodium 142 mmol/L (136-145); Thyroid Stimulating Hormone 4.53 uIU/mL (0.27-4.20); Total Protein 7.0 g/dL (6.6-8.7)
== END 2025-07-12 23:59 | disposition home or self-care (01) ==
LOC: ONCMED 09:35
PROVIDERS: PCP Family Medicine; Visit Provider Internal Medicine Medical Oncology
DX: C53.0 Malignant neoplasm of endocervix (principal); R53.83 Other fatigue; Z87.891 Personal history of nicotine dependence; Z92.3 Personal history of irradiation; Z92.21 Personal history of antineoplastic chemotherapy
CPT/HCPCS: 36415; 80053; 84443; 85025; 99214

== ENCOUNTER → 2025-07-16 10:26 | Outpatient (BNVA) | payer MEDICARE, SELFPAY | PROVIDERS: PCP Family Medicine; Visit Provider Student in an Organized Health Care Education/Training Program | DX: Z95.828 Presence of other vascular implants and grafts (principal); C53.0 Malignant neoplasm of endocervix | CPT/HCPCS: 99204 ==

== ENCOUNTER 2025-07-27 06:59 | Day surgery (SDC) | payer MEDICARE, SELFPAY ==
[2025-07-27] VITALS (7 sets, daily range): BP systolic 103–155; BP diastolic 66–85; PULSE 65–70; RESP 15–18; TEMP 36.2–36.6; O2SAT 97–100; BMI 32.6
--- NOTE | 2025-07-27 07:10 | SC_ITS ---
WS: [id number] C-ARM RADIOGRAPHS CHEST; 2 IMAGES HISTORY: port placement COMPARISON: None available. Intraoperative imaging during RIGHT Mediport placement. SC/C-arm FL for CVA [id number] IMPRESSION: Intraoperative imaging during RIGHT Mediport placement.
--- NOTE | 2025-07-27 07:37 | ANES.PREANE2 ---
Pre-Anesthetic Assessment Height/Weight: Height 1.55 m Weight 78.471 kg Temp Pulse Resp BP Pulse Ox O2 Del Method 97.9 F 70 18 147/85 99 Room Air 07/27/25 07:27 07/27/25 07:27 07/27/25 07:27 07/27/25 07:27 07/27/25 07:27 07/27/25 07:27 Operation Date: 07/27/25 08:30 Proposed Procedures p Port a Cath Insertion 45226 C53.0(Not Applicable) - Bobby Penn MD Familial anesthetic complications: None Was Beta Tucker taken within 24 hours: N/A Was Clonidine taken within 24 hours: N/A Last intake: Intake Last Liquid Date 07/26/25 Last Liquid Time 21:30 Last Solid Date 07/26/25 Last Solid Time 19:30 Social No alcohol and No tobacco Exam alert, oriented x 3, clear to auscultation bilaterally and regular rate & rhythm Airway Mallampati: Class II Dentition: other (multiple missing) Anesthetic Plan ASA status: 3 Anesthesia: MAC Risk of > 500 ml blood loss (7ml/kg in children): No Medications/Allergies Home Medications ?Medication ?Instructions ?Recorded ?Confirmed ?Last Taken ?Type acetaminophen 500 mg capsule 500 mg PO Q6H PRN pain 08/07/23 07/27/25 07/23/25 History turmeric 100 mg-derek 150 1 cap PO DAILY 08/07/23 07/23/25 Unknown History mg-olive 50 mg-oreg 150 mg-capryl capsule blue-green algae (Spirulina) 500 500 mg PO DAILY 10/08/23 07/23/25 07/23/25 History mg tablet fluticasone propionate 50 2 spray intranasal DAILY #16 grams 06/15/25 07/23/25 Unknown Rx mcg/actuation nasal spray,suspension (Flonase Allergy Relief) Allergies Allergy/AdvReac Type Severity Reaction Status Date / Time No Known Allergies Allergy Verified 07/21/25 11:35 [facility] Anesthesia Medical History History of depression Cervical cancer Surgical History History of tonsillectomy Family History Grandmother Heart disease maternal Mother Hypertension Stroke Diabetes Denies family history of Colon cancer Ovarian cancer Hypercholesteremia Breast cancer Uterine cancer Thyroid disease Social History Smoking and tobacco/nicotine status: former use of tobacco/nicotine Quit status (tobacco/nicotine): has quit using Year quit tobacco: 1983 Former quit date comment: Smoked for 12 years Second hand smoke exposure: Yes Alcohol intake: never Substance/Drug Use: never
--- NOTE | 2025-07-27 08:21 | W.PM.OPSFHP ---
Same Day Surgery H&P Indication for Procedure/HPI DATE OF PROCEDURE: July 27, 2025 CHIEF COMPLAINT/INDICATIONFOR SURGICAL PROCEDURE: Cervical cancer PREOP DIAGNOSIS: Same PLANNED PROCEDURE: Operation Date: 07/27/25 08:30 Proposed Procedures p Port a Cath Insertion [id number] C53.0(Not Applicable) - Bobby Penn MD 69-year-old female with history of cervical cancer who presents for port placement. Patient has been evaluated by my colleague Dr. Watson but unfortunately could not undergo surgery last and now Dr. Watson is out of office. I have been requested to proceed with port placement. After complete history, physical examination and review of all available clinical data the following is my assessment. Patient will benefit from Port-A-Cath placement. I have discussed all the risk and benefits of the procedure with the patient including the risk of pneumothorax requiring tube thoracostomy, risks of cannulation of the carotid artery, risk of injuring the blood vessels and heart at the level of the chest which will require emergent surgical intervention and could lead to , wound related complications including bleeding and infection, seroma formation, hematoma formation, long-term complications include infection of the catheter requiring excision, need for additional surgical procedures, nonfunction of the catheter, catheter migration, catheter erosion into the skin. Patient shows understanding and wishes to proceed. Medications/Allergies* Home Medications ?Medication ?Instructions ?Recorded ?Confirmed ?Type acetaminophen 500 mg capsule 500 mg PO Q6H PRN pain 08/07/23 07/27/25 History turmeric 100 mg-derek 150 1 cap PO DAILY 08/07/23 07/23/25 History mg-olive 50 mg-oreg 150 mg-capryl capsule blue-green algae (Spirulina) 500 500 mg PO DAILY 10/08/23 07/23/25 History mg tablet Allergies/Adverse Reactions Allergy/AdvReac Type Severity Reaction Status Date / Time No Known Allergies Allergy Verified 07/21/25 11:35 Current Medications: Generic Name Dose Route Start Last Admin Trade Name Freq PRN Reason Stop Dose Admin Sodium Chloride 1,000 mls @ 30 mls/hr 07/27/25 07:15 07/27/25 07:57 Sodium Chloride 0.9% IV 07/28/25 07:14 30 mls/hr .Q24H TIMOTHY Administration Pertinent History/Comorbid Conditions* Medical History (Updated 06/15/25 @ 14:07 by Jamila Morocho DO) History of depression Cervical cancer Surgical History (Updated 07/27/23 @ 12:03 by Malik John MD) History of tonsillectomy Family History (Updated 05/21/23 @ 12:58 by Karissa Calderon LPN) Diabetes Mother Heart disease Grandmother maternal Hypertension Mother Stroke Mother Denies family history of Colon cancer Ovarian cancer Hypercholesteremia Breast cancer Uterine cancer Thyroid disease Social History Smoking and tobacco/nicotine status: former use of tobacco/nicotine Quit status (tobacco/nicotine): has quit using Year quit tobacco: 1983 Former quit date comment: Smoked for 12 years Second hand smoke exposure: Yes Alcohol intake: never Substance/Drug Use: never Pertinent Exam Findings alert, oriented x 3, clear to auscultation bilaterally and regular rate & rhythm Recommendations Surgery/Procedure today Coding Level of Care Code Acute Code for Chg Rajendra
[2025-07-27] MEDS: ceFAZolin 2,000 mg SDV 2000 MG IVP (08:35)
[2025-07-27] MEDS: BUPivacaine 0.25% INJ 10 mL INJECTION (08:54)
[2025-07-27] MEDS: heparin, porcine 1,000 unit/mL INJ 10 mL 10000 UNIT IRRIGATION (08:54)
[2025-07-27] MEDS: lidocaine-epi 1% 20 mL INJ INJECTION (08:54)
--- NOTE | 2025-07-27 09:19 | PM.OP ---
Operative Report Date of procedure: July 27, 2025 Pre-op diagnosis: Cervical cancer Post-op diagnosis: Same Post-op findings: normal vascular anatomy of the right neck Procedure done: Insertion of right IJ Port-A-Cath Implants: Bard port-a-cath Specimens removed/disposition: none Surgeon: Bobby Penn MD Freight Rate Analyst: [facility] Staff Estimated blood loss: 10 Complications: none Brief History: 69-year-old female with history of cervical cancer who presented to the hospital for port placement. After discussion of all risk and benefits as documented in my preop note we decided to proceed Procedure: Patient was brought into the OR, she was placed in a supine position, monitored anesthesia sedation was given. Timeout was conducted after the skin was prepped and draped in the usual sterile fashion. I then proceeded to identify the right IJ vein with ultrasound, I infiltrated local anesthesia on top of the vein. I then proceeded to cannulate the vein under direct ultrasound guidance using an 18-gauge needle, the needle tip was seen entering the vein and immediate return of blood was noted. A wire was advanced through the needle and the needle was removed. The position of the wire was verified with ultrasound and fluoroscopy. The wire was then fixed to the drapes. I then placed my attention to the chest, local anesthesia was infiltrated in the previously marked area on the chest and then a tract connecting the chest to the wire insertion site in the neck. I then proceeded to make a 3.5 cm incision in the right upper chest, the incision was deepened to subcutaneous tissue with electrocautery and electrocautery was used to create the subcutaneous pocket to house the Port-A-Cath. I then proceeded to use a hemostat to create a tunnel from the chest wound to the neck. I then proceeded to make a 0.5 cm incision at the level of the wire insertion site in the neck. Hemostasis was verified. I then placed the Port-A-Cath in the pocket and tunneled the catheter using the provided tunneler. The catheter was cut to appropriate length under fluoroscopy guidance and then flushed. I then proceeded to insert an introducer with a peel-off sheath over the wire under direct fluoroscopic guidance. I then remove the wire and the introducer leaving the peel-off sheath in place. The catheter was then advanced through the peel-off sheath and the peel-off sheath was removed leaving the catheter in place. Fluoroscopy showed evidence of Adequate catheter position. I then proceeded to access the port; the port was retrieving blood and flushing fine, I then hep-locked the catheter. Hemostasis was verified. The wound was closed in layers using #3-0 Vicryl for the subcutaneous tissue and #4 Monocryl for the skin. Dermabond was applied. At the end of the procedure all counts were correct. The patient tolerated well the procedure and was transferred to the PACU in stable condition.
--- NOTE | 2025-07-27 10:35 | ANE.PACU2 ---
Inpatient post-anesthesia follow up: Airway intact: Yes Vital signs: Temperature 97.2 F Pulse Rate 66 Respiratory Rate 18 Blood Pressure 138/75 Pulse Oximetry 99 Oxygen Delivery Me thod Room Air Oxygen Flow Rate 8 Fraction of Inspir ed Oxygen Hydration adequate: Yes Nausea and vomiting: No Pain level: 1 Mental status: Baseline
== END 2025-07-27 10:35 | disposition home or self-care (01) ==
PROVIDERS: PCP Family Medicine; Visit Provider Surgery
PROC: (CPT 36561; principal; 2025-07-27 08:20)
DX: C53.9 Malignant neoplasm of cervix uteri, unspecified (principal); F32.A Depression, unspecified; Z87.891 Personal history of nicotine dependence
CPT/HCPCS: 36561; 76000; 77001; C1788; J0690; J1644; J2371; J2704; J3010; J3490; J7030; J9999

== ENCOUNTER 2025-08-04 08:31 | Oncology outpatient (recurring) (ONCR) | payer MEDICARE, SELFPAY ==
[2025-08-04 08:53] LABS: Hematocrit 36.9 % (36-47); Hemoglobin 12.80 g/dL (11.27-16.99); Mean Corpuscular HGB Conc 34.7 g/dL (30-55); Mean Corpuscular Hemoglobin 31.8 pg (27-33); Mean Corpuscular Volume 91.8 fl (85-98); Nucleated Red Blood Cells % 0 %; Platelet Count 199 10^3/cmm (157-399); Red Blood Count 4.02 10^6/uL (3.85-5.65); White Blood Count 4.63 10^3/uL (3.29-11.43)
[2025-08-04 09:23] LABS: Alanine Aminotransferase 11 U/L (0-33); Albumin Level 4.2 g/dL (3.5-5.2); Alkaline Phosphatase 115 U/L (35-105); Anion Gap 16.1 (5-19); Aspartate Amino Transferase 15 U/L (0-32); Blood Urea Nitrogen 11 mg/dL (8-23); Calcium 9.1 mg/dL (8.5-10.5); Carbon Dioxide 23 mmol/L (22-29); Chloride 105 mmol/L (98-107); Creatinine Clr Calc Pharmacy 61.7756; Globulin 2.8 g/dL (1.3-4.6); Glucose 90 mg/dL (65-115); Osmolality Calculated 289 mOsm/kg (285-295); Potassium 4.1 mmol/L (3.5-5.1); Sodium 140 mmol/L (136-145); Thyroid Stimulating Hormone 5.52 uIU/mL (0.27-4.20); Total Protein 7.0 g/dL (6.6-8.7)
[2025-08-04 09:44] LABS: Hepatitis B Surface Antigen Non-Reactive (Nonreactive)
[2025-08-04] MEDS: pembrolizumab 200 MG in sodium chloride 0.9% 250 ML 516 MG IV (11:06)
[2025-08-04 12:04] VITALS: BP 133/81; PULSE 53; RESP 17; TEMP 36.2; O2SAT 96
== END 2025-08-04 23:59 | disposition home or self-care (01) ==
PROVIDERS: Nurse Practitioner; PCP Family Medicine; Visit Provider Internal Medicine Medical Oncology
DX: Z53.9 Procedure and treatment not carried out, unspecified reason (principal); Z51.12 Encounter for antineoplastic immunotherapy; C53.0 Malignant neoplasm of endocervix; Z92.3 Personal history of irradiation; Z87.891 Personal history of nicotine dependence; Z79.899 Other long term (current) drug therapy
CPT/HCPCS: 80053; 82533; 84443; 85025; 86705; 86706; 87340; 96413; 99215; J7050; J9271

== ENCOUNTER 2025-08-11 08:58 | Oncology outpatient (recurring) (ONCR) | payer MEDICARE, SELFPAY ==
[2025-08-11 09:18] LABS: Hematocrit 38.4 % (36-47); Hemoglobin 12.80 g/dL (11.27-16.99); Mean Corpuscular HGB Conc 33.3 g/dL (30-55); Mean Corpuscular Hemoglobin 30.4 pg (27-33); Mean Corpuscular Volume 91.2 fl (85-98); Nucleated Red Blood Cells % 0 %; Platelet Count 199 10^3/cmm (157-399); Red Blood Count 4.21 10^6/uL (3.85-5.65); White Blood Count 4.41 10^3/uL (3.29-11.43)
[2025-08-11 09:37] LABS: Alanine Aminotransferase 10 U/L (0-33); Albumin Level 4.2 g/dL (3.5-5.2); Alkaline Phosphatase 115 U/L (35-105); Anion Gap 14.8 (5-19); Aspartate Amino Transferase 18 U/L (0-32); Blood Urea Nitrogen 9 mg/dL (8-23); Calcium 9.1 mg/dL (8.5-10.5); Carbon Dioxide 25 mmol/L (22-29); Chloride 105 mmol/L (98-107); Creatinine Clr Calc Pharmacy 61.0625; Globulin 2.8 g/dL (1.3-4.6); Glucose 128 mg/dL (65-115); Osmolality Calculated 292 mOsm/kg (285-295); Potassium 3.8 mmol/L (3.5-5.1); Sodium 141 mmol/L (136-145); Total Protein 7.0 g/dL (6.6-8.7)
== END 2025-08-11 23:59 | disposition home or self-care (01) ==
LOC: ONCMED 08:59
PROVIDERS: PCP Family Medicine; Visit Provider Nurse Practitioner
DX: C53.0 Malignant neoplasm of endocervix (principal); Z87.891 Personal history of nicotine dependence; Z95.828 Presence of other vascular implants and grafts
CPT/HCPCS: 36415; 80053; 85025; 99213

== ENCOUNTER 2025-09-01 11:40 | Oncology outpatient (recurring) (ONCR) | payer MEDICARE, SELFPAY ==
[2025-09-01 12:02] LABS: Hematocrit 35.6 % (36-47); Hemoglobin 12.40 g/dL (11.27-16.99); Mean Corpuscular HGB Conc 34.8 g/dL (30-55); Mean Corpuscular Hemoglobin 31.0 pg (27-33); Mean Corpuscular Volume 89.0 fl (85-98); Nucleated Red Blood Cells % 0 %; Platelet Count 223 10^3/cmm (157-399); Red Blood Count 4.00 10^6/uL (3.85-5.65); White Blood Count 4.72 10^3/uL (3.29-11.43)
[2025-09-01 12:21] LABS: Alanine Aminotransferase 27 U/L (0-33); Albumin Level 4.1 g/dL (3.5-5.2); Alkaline Phosphatase 151 U/L (35-105); Anion Gap 17.3 (5-19); Aspartate Amino Transferase 24 U/L (0-32); Blood Urea Nitrogen 10 mg/dL (8-23); Calcium 9.4 mg/dL (8.5-10.5); Carbon Dioxide 23 mmol/L (22-29); Chloride 102 mmol/L (98-107); Globulin 2.9 g/dL (1.3-4.6); Glucose 94 mg/dL (65-115); Osmolality Calculated 285 mOsm/kg (285-295); Potassium 4.3 mmol/L (3.5-5.1); Sodium 138 mmol/L (136-145); Total Protein 7.0 g/dL (6.6-8.7)
[2025-09-01 13:55] LABS: Thyroid Stimulating Hormone 0.08 uIU/mL (0.27-4.20)
[2025-09-01 14:32] VITALS: BP 127/82; PULSE 64; RESP 16; TEMP 37; O2SAT 98
[2025-09-01] MEDS: pembrolizumab 200 MG in sodium chloride 0.9% 250 ML 516 MG IV (14:40)
[2025-09-01 15:22] VITALS: BP 136/77; PULSE 75; RESP 17; TEMP 36.6; O2SAT 97
== END 2025-09-01 23:59 | disposition home or self-care (01) ==
PROVIDERS: PCP Family Medicine; Visit Provider Nurse Practitioner
DX: Z51.12 Encounter for antineoplastic immunotherapy (principal); C53.0 Malignant neoplasm of endocervix; R03.0 Elevated blood-pressure reading, without diagnosis of hypertension; R53.83 Other fatigue; Z87.891 Personal history of nicotine dependence; Z92.3 Personal history of irradiation; Z92.21 Personal history of antineoplastic chemotherapy; Z95.828 Presence of other vascular implants and grafts; Z79.899 Other long term (current) drug therapy
CPT/HCPCS: 80053; 84443; 85025; 96413; 99214; A4222; J7050; J9271

== ENCOUNTER 2025-09-22 12:35 | Oncology outpatient (recurring) (ONCR) | payer MEDICARE, SELFPAY ==
[2025-09-22 13:17] LABS: Hematocrit 37.3 % (36-47); Hemoglobin 12.40 g/dL (11.27-16.99); Mean Corpuscular HGB Conc 33.2 g/dL (30-55); Mean Corpuscular Hemoglobin 29.9 pg (27-33); Mean Corpuscular Volume 89.9 fl (85-98); Nucleated Red Blood Cells % 0 %; Platelet Count 215 10^3/cmm (157-399); Red Blood Count 4.15 10^6/uL (3.85-5.65); White Blood Count 4.88 10^3/uL (3.29-11.43)
[2025-09-22 13:47] LABS: Alanine Aminotransferase 12 U/L (0-33); Albumin Level 4.2 g/dL (3.5-5.2); Alkaline Phosphatase 110 U/L (35-105); Anion Gap 14.9 (5-19); Aspartate Amino Transferase 15 U/L (0-32); Blood Urea Nitrogen 9 mg/dL (8-23); Calcium 9.1 mg/dL (8.5-10.5); Carbon Dioxide 23 mmol/L (22-29); Chloride 101 mmol/L (98-107); Creatinine Clr Calc Pharmacy 61.5518; Globulin 2.8 g/dL (1.3-4.6); Glucose 118 mg/dL (65-115); Osmolality Calculated 280 mOsm/kg (285-295); Potassium 3.9 mmol/L (3.5-5.1); Sodium 135 mmol/L (136-145); Thyroid Stimulating Hormone 21.96 uIU/mL (0.27-4.20); Total Protein 7.0 g/dL (6.6-8.7)
[2025-09-22] MEDS: pembrolizumab 200 MG in sodium chloride 0.9% 250 ML 516 MG IV (14:07)
[2025-09-22 14:35] LABS: Free T4 Free Thyroxine 0.57 ng/dL (0.82-1.77)
[2025-09-22 14:46] VITALS: BP 134/68; PULSE 64; RESP 16; TEMP 36.7; O2SAT 98
== END 2025-09-22 23:59 | disposition home or self-care (01) ==
PROVIDERS: Internal Medicine Medical Oncology; PCP Family Medicine; Visit Provider Nurse Practitioner
DX: Z51.12 Encounter for antineoplastic immunotherapy (principal); C53.0 Malignant neoplasm of endocervix; R53.83 Other fatigue; E05.90 Thyrotoxicosis, unspecified without thyrotoxic crisis or storm; R03.0 Elevated blood-pressure reading, without diagnosis of hypertension; Z79.899 Other long term (current) drug therapy; Z87.891 Personal history of nicotine dependence; Z95.828 Presence of other vascular implants and grafts; Z92.3 Personal history of irradiation; Z92.21 Personal history of antineoplastic chemotherapy
CPT/HCPCS: 80053; 84439; 84443; 84481; 85025; 96413; 99214; A4222; J7050; J9271

== ENCOUNTER 2025-10-13 10:02 | Oncology outpatient (recurring) (ONCR) | payer MEDICARE, SELFPAY ==
[2025-10-13 10:21] LABS: Hematocrit 39.5 % (36-47); Hemoglobin 13.20 g/dL (11.27-16.99); Mean Corpuscular HGB Conc 33.4 g/dL (30-55); Mean Corpuscular Hemoglobin 30.0 pg (27-33); Mean Corpuscular Volume 89.8 fl (85-98); Nucleated Red Blood Cells % 0 %; Platelet Count 210 10^3/cmm (157-399); Red Blood Count 4.40 10^6/uL (3.85-5.65); White Blood Count 5.14 10^3/uL (3.29-11.43)
[2025-10-13 10:48] LABS: Alanine Aminotransferase 11 U/L (0-33); Albumin Level 4.5 g/dL (3.5-5.2); Alkaline Phosphatase 113 U/L (35-105); Anion Gap 17.1 (5-19); Aspartate Amino Transferase 17 U/L (0-32); Blood Urea Nitrogen 12 mg/dL (8-23); Calcium 9.5 mg/dL (8.5-10.5); Carbon Dioxide 24 mmol/L (22-29); Chloride 102 mmol/L (98-107); Creatinine Clr Calc Pharmacy 61.5518; Globulin 2.7 g/dL (1.3-4.6); Glucose 85 mg/dL (65-115); Osmolality Calculated 287 mOsm/kg (285-295); Potassium 4.1 mmol/L (3.5-5.1); Sodium 139 mmol/L (136-145); Thyroid Stimulating Hormone 91.05 uIU/mL (0.27-4.20); Total Protein 7.2 g/dL (6.6-8.7)
[2025-10-13 12:05] VITALS: BP 122/70; PULSE 70; RESP 16; TEMP 36.7; O2SAT 98
[2025-10-13] MEDS: pembrolizumab 200 MG in sodium chloride 0.9% 250 ML 516 MG IV (12:11)
[2025-10-13 12:43] VITALS: BP 138/80; PULSE 65; RESP 16; TEMP 36.6; O2SAT 98
== END 2025-10-13 23:59 | disposition home or self-care (01) ==
PROVIDERS: Internal Medicine Medical Oncology; PCP Family Medicine; Visit Provider Nurse Practitioner
DX: Z53.9 Procedure and treatment not carried out, unspecified reason; Z51.12 Encounter for antineoplastic immunotherapy; C53.0 Malignant neoplasm of endocervix; E05.90 Thyrotoxicosis, unspecified without thyrotoxic crisis or storm; R03.0 Elevated blood-pressure reading, without diagnosis of hypertension; Z92.3 Personal history of irradiation; Z92.21 Personal history of antineoplastic chemotherapy; Z95.828 Presence of other vascular implants and grafts; Z79.899 Other long term (current) drug therapy
CPT/HCPCS: 80053; 84443; 85025; 96413; 99214; A4222; J7050; J9271

== ENCOUNTER 2025-11-03 09:22 | Oncology outpatient (recurring) (ONCR) | payer MEDICARE, SELFPAY ==
[2025-11-02 11:26] LABS: Hematocrit 38.7 % (36-47); Hemoglobin 13.00 g/dL (11.27-16.99); Mean Corpuscular HGB Conc 33.6 g/dL (30-55); Mean Corpuscular Hemoglobin 30.7 pg (27-33); Mean Corpuscular Volume 91.5 fl (85-98); Nucleated Red Blood Cells % 0 %; Platelet Count 197 10^3/cmm (157-399); Red Blood Count 4.23 10^6/uL (3.85-5.65); White Blood Count 4.33 10^3/uL (3.29-11.43)
[2025-11-02 11:55] LABS: Alanine Aminotransferase 10 U/L (0-33); Albumin Level 4.4 g/dL (3.5-5.2); Alkaline Phosphatase 111 U/L (35-105); Anion Gap 14.9 (5-19); Aspartate Amino Transferase 16 U/L (0-32); Blood Urea Nitrogen 10 mg/dL (8-23); Calcium 9.2 mg/dL (8.5-10.5); Carbon Dioxide 24 mmol/L (22-29); Chloride 103 mmol/L (98-107); Globulin 2.6 g/dL (1.3-4.6); Glucose 86 mg/dL (65-115); Osmolality Calculated 284 mOsm/kg (285-295); Potassium 3.9 mmol/L (3.5-5.1); Sodium 138 mmol/L (136-145); Thyroid Stimulating Hormone 96.19 uIU/mL (0.27-4.20); Total Protein 7.0 g/dL (6.6-8.7)
[2025-11-03] MEDS: pembrolizumab 200 MG in sodium chloride 0.9% 250 ML 516 MG IV (11:40)
[2025-11-03 12:22] VITALS: BP 144/86; PULSE 76; RESP 17; O2SAT 96
== END 2025-11-03 23:59 | disposition home or self-care (01) ==
PROVIDERS: PCP Family Medicine; Visit Provider Nurse Practitioner
DX: Z51.12 Encounter for antineoplastic immunotherapy; C53.0 Malignant neoplasm of endocervix; E05.90 Thyrotoxicosis, unspecified without thyrotoxic crisis or storm; R03.0 Elevated blood-pressure reading, without diagnosis of hypertension; Z79.899 Other long term (current) drug therapy; Z92.21 Personal history of antineoplastic chemotherapy; Z92.3 Personal history of irradiation; Z95.828 Presence of other vascular implants and grafts; Z87.891 Personal history of nicotine dependence; Z53.9 Procedure and treatment not carried out, unspecified reason
CPT/HCPCS: 36591; 80053; 84443; 85025; 96413; 99214; A4222; J7050; J9271